=== PATIENT | female | born 1940 | race African-American/Black ===

== ENCOUNTER 2016-11-25 18:47 | Observation (INO) ==
[2016-11-25 20:09] LABS: Basophils # 0.1 10*3/uL (0.0-0.2); Basophils % 1.7 % (0.0-0.8); Eosinophils # 0.3 10*3/uL (0.0-0.87); Eosinophils % 5.6 % (0.00-10.9); Hematocrit 43.2 VOL% (35.7-47.0); Hemoglobin 14.3 GM/DL (12.0-16.0); Immature Granulocytes % 0.2 %; Immature Granulocytes Absolute 0.01 #; Lymphocytes # 1.8 10*3/uL (1.4-4.0); Lymphocytes % 37.6 % (21.3-54.2); Mean Corpuscular HGB Conc 33.1 GM/DL (32-36); Mean Corpuscular Hemoglobin 30 PG (27-34); Mean Corpuscular Volume 91.7 FL (87-102); Monocytes # 0.8 10*3/uL (0.11-0.8); Monocytes % 16.6 % (1.7-12.7); Neutrophils # 1.8 10*3/uL (1.4-7.4); Neutrophils % 38.3 % (38.7-73.9); Platelet Count 144 T/CUMM (130-400); Red Blood Count 4.71 MC/CUMM (3.8-5.5); Red Cell Distribution Width 13.7 % (9.3-17.3); White Blood Count 4.8 T/CUMM (4-12)
--- NOTE | 2016-11-25 20:13 | XRay Report ---
Portable chest Exam date: 11/25/2016 7:51 PM Indication: Shortness of breath, cough Comparison: May 19, 2011 Findings: Cardiomediastinal contours are normal. Lungs are clear bilaterally. No acute osseous abnormalities. Visualized upper abdomen demonstrates no acute pathology. Impression: Normal chest PROCEDURE INTERPRETED AT [facility] DEPARTMENT OF RADIOLOGY Final Report Signed by: Raine Arora MD
[2016-11-25 20:20] LABS: Alanine Aminotransferase 23 U/L (13-56); Albumin 3.8 G/DL (3.4-5.0); Alkaline Phosphatase 74 U/L (45-117); Aspartate Amino Transferase 22 U/L (0-37); Bilirubin,Total < 0.39 MG/DL (0.2-1.0); Blood Urea Nitrogen 15 MG/DL (7-18); Calcium 9.3 MG/DL (8.5-10.1); Glucose 108 MG/DL (74-106); Osmolality,Calculated 276.7 MOS/KG (273-304); Potassium 3.8 MMOL/L (3.5-5.1); Sodium 138 MMOL/L (136-145); Total Protein 8.2 G/DL (6.4-8.3)
--- NOTE | 2016-11-25 21:25 | Emergency Department Note ---
Arrival - Arrival Chief Complaint: Chest Pain Stated Complaint: heat rate low and blood pressure been low chest pa ED Nursing Triage Note: chest pain and low heart rate - sent to ER per home health nurse Mode of Arrival: Wheelchair Time Seen by Provider: 11/25/16 19:19 - History of Present Illness HPI Narrative: This is a 76-year-old female of descent with a history of previous cerebral vascular accident, hyperlipidemia, hypertension, asthma, type 2 diabetes, who had a previous myocardial infarction with stent placement 6 years ago and who presents with 3 weeks of exertional anginal pain radiating to her left arm associated with shortness of breath. Partial in 2 weeks ago her family called an ambulance with the patient did not go to the hospital. She followed up with her family physician who increased 1 of her medications which we believe is a beta-jean paul. Tonight the patient was examined by the home health nurse that noticed that her heart rate was 46 and her the story about her exertional angina recommended that she come to the emergency department. The troponin is 0.02 the electrocardiogram does not show acute ischemic changes. Date of Last Menstrual Period: marika Allergies/Adverse Reactions: Allergies Allergy/AdvReac Type Severity Reaction Status Date / Time No Known Allergies Allergy Unverified 11/25/16 18:54 Home Medications: Home Medications Medication Instructions Recorded Confirmed Type Amlodipine Besylate/Benazepril 1 each PO QAM 11/25/16 11/25/16 History [Amlodipine-Benazepril 10-40 mg] Aspirin EC Tab 81 mg PO QAM 11/25/16 11/25/16 History Escitalopram [Lexapro] 5 - 10 mg PO QAM 11/25/16 11/25/16 History Losartan [Cozaar] 100 mg PO QAM 11/25/16 11/25/16 History Metoprolol Succinate 150 mg PO QAM 11/25/16 11/25/16 History Omeprazole 20 mg PO QAM 11/25/16 11/25/16 History Zolpidem Tartrate 10 mg PO BEDTIME PRN 11/25/16 11/25/16 History hydroCHLOROthiazide 12.5 mg PO QAM 11/25/16 11/25/16 History [Hydrochlorothiazide] tiZANidine [Zanaflex] 2 - 4 mg PO BEDTIME PRN 11/25/16 11/25/16 History Review of System - Review of System Constitutional: Absent: fever, night sweats Eyes: Absent: redness, other Head/Ears/Nose/Throat: Absent: epistaxis, nasal drainage Respiratory: Absent: cough, respiratory distress, wheezing Cardiovascular: Present: chest pain, dyspnea on exertion. Absent: orthopnea, syncope Gastrointestinal: Absent: diarrhea, constipation, hematemesis, melena Genitourinary female: Absent: dysuria, frequency Musculoskeletal: Absent: lower back pain, leg pain Skin: Absent: change in hair/nails, pruritus Neurological: Absent: numbness, paresthesias Psychiatric: Absent: anxiety, depression Endocrine: Absent: polydipsia, polyuria Hematological/Lymphatic: Absent: easy bruising, lymphadenopathy Allergic/Immunologic: Absent: urticaria, itchy eyes Medical,Surgical,& Family Hx - Medical History Cardio: History of: Hypertension Psychological: History of: Depression Neurology: History of: Cerebrovascular Accident Endocrine: History of: Diabetes Mellitus (NIDDM) (diet control), Dyslipidemia Respiratory: History of: Asthma Gastrointestinal: History of: GERD - Social History Smoking Status: Never smoker Frequency of Alcohol Use: None Type of Drug Use: None Exam Vital Signs: Vital Signs Temperature 97.7 F 11/25/16 18:54 Pulse Rate 76 11/25/16 18:54 Respiratory Rate 18 11/25/16 19:51 Blood Pressure 178/90 11/25/16 18:54 O2 Sat by Pulse Oximetry 94 L 11/25/16 18:54 - General General appearance: alert - Head Head exam: Present: atraumatic, normocephalic - Eye Eye exam: Present: PERRL, EOMI - ENT ENT exam: Present: normal exam, normal oropharynx - Neck Neck exam: Present: normal inspection, full ROM - Chest Chest inspection: Present: normal inspection - Respiratory Respiratory exam: Present: normal lung sounds bilaterally - Cardiovascular Cardiovascular exam: Present: regular rate, normal rhythm - Abdominal Exam Abdominal exam: Present: soft, normal bowel sounds - Extremities Exam Extremities exam: Present: normal inspection, full ROM - Back Exam Back exam: Present: normal inspection, full ROM - Neurological Exam Neurological exam: Present: alert, oriented X3, CN II-XII intact - Psychiatric Psychiatric exam: Present: normal affect, normal mood, depressed - Skin Skin exam: Present: warm, dry Course Course Narrative: Because the patient has exertional angina and a slightly elevated troponin it seems reasonable patient to be admitted to the hospital for further evaluation and treatment. The patient's case was discussed with the hospitalist who agreed to admit the patient. Results - Labs CBC & BMP: 11/25/16 19:17 11/25/16 19:17 Disposition Clinical Impression: Angina pectoris Disposition: Still a Patient
[2016-11-25 21:57] LABS: Atypical Lymphocytes Few; Eosinophils 5 % (0-10); Lymphocytes 46 % (20-55); Platelet Estimate Normal; Segmented Neutrophils 40 % (50-85); Total Cells Counted 100
[2016-11-25] MEDS ORDERED: ONDANSETRON 4 MG/2 ML VIAL IV PRN (23:15)
[2016-11-25] MEDS ORDERED: ZALEPLON 5 MG CAPSULE PO PRN (23:18)
--- NOTE | 2016-11-25 23:23 | Hospitalist History & Physical ---
Assessment and Plan (1) Chest pain Status: Acute Current Visit: Yes (2) Bradycardia Status: Acute Current Visit: Yes (3) Hypertension Status: Acute Current Visit: Yes (4) Angina pectoris Status: Acute Assessment and plan: Our plan for this patient will be admitting her to our service. Patient will need to be placed on telemetry. I am going to hold her beta-jean paul at this time. Will consult cardiology for their evaluation. Patient's symptoms are consistent with exertional angina. Will give her Nitropaste aspirin and as needed morphine. Continue other home meds as appropriate. Current Visit: Yes History of Present Illness Chief complaint: Chest pain and decreased heart rate History of present illness: Ms. Alejandre is a 76 year old female with past medical history significant for coronary artery disease hypertension arthritis asthma and stroke who was in her normal state of health the past 3 weeks. Patient's been having a chest pain. She describes his pressure. Radiates to her left arm. She feels diaphoretic and has some exertional components with it. She had home health nurse come check her vital signs today and she was found to be bradycardic. She recommended that the patient go to the emergency room or clinic. When I asked the patient about why she did not seek medical attention before today she said that she thought it would get better. She says in fact it does remind her of her previous heart attack. I was consulted for admission. She sees Dr. Baeza the facsimile operator in clinic. Home Medications Medication Instructions Recorded Confirmed Type Amlodipine Besylate/Benazepril 1 each PO QAM 11/25/16 11/25/16 History [Amlodipine-Benazepril 10-40 mg] Aspirin EC Tab 81 mg PO QAM 11/25/16 11/25/16 History Escitalopram [Lexapro] 5 - 10 mg PO QAM 11/25/16 11/25/16 History Losartan [Cozaar] 100 mg PO QAM 11/25/16 11/25/16 History Metoprolol Succinate 150 mg PO QAM 11/25/16 11/25/16 History Omeprazole 20 mg PO QAM 11/25/16 11/25/16 History Zolpidem Tartrate 10 mg PO BEDTIME PRN 11/25/16 11/25/16 History hydroCHLOROthiazide 12.5 mg PO QAM 11/25/16 11/25/16 History [Hydrochlorothiazide] tiZANidine [Zanaflex] 2 - 4 mg PO BEDTIME PRN 11/25/16 11/25/16 History Allergies Allergy/AdvReac Type Severity Reaction Status Date / Time No Known Allergies Allergy Unverified 11/25/16 18:54 Medical,Surgical,& Family Hx - Medical History Cardio: History of: CAD, Hypertension Psychological: History of: Depression Neurology: History of: Cerebrovascular Accident Endocrine: History of: Diabetes Mellitus (NIDDM) (diet control), Dyslipidemia Respiratory: History of: Asthma Gastrointestinal: History of: GERD - Surgical History HEENT Surgeries: Surgical HX of: Thyroid Surgery - Family History Family History: Reports;: Family Heart Disease, Family Hypertension, Family Stroke - Social History Smoking Status: Never smoker Frequency of Alcohol Use: None Type of Drug Use: None 12 point system: reviewed and no additional remarkable complaints except as stated Exam - Constitutional Vitals: Period Temp Pulse Resp BP Sys/Dee Pulse Ox Last 24 Hr 97.7 F 76 18-20 178/90 94 General appearance: over weight - Head Head exam: Present: normal inspection - Eye Eye exam: Present: EOMI Pupils: Present: AMELIE - ENT ENT exam: Present: normal exam - Neck Neck exam: Present: normal inspection - Respiratory Respiratory exam: Present: clear to auscultation bilaterally - Cardiovascular Cardiovascular exam: Present: bradycardia - GI/Abdominal GI/Abdominal exam: Present: normal bowel sounds - Extremities Exam Extremities exam: Present: normal inspection - Back Exam Back exam: Present: normal inspection - Neurological Exam Neurological exam: Present: alert, oriented X3 - Psychiatric Psychiatric exam: Present: normal affect - Skin Skin exam: Present: normal color Results - Labs CBC & BMP: 11/25/16 19:17 11/25/16 19:17
[2016-11-25] MEDS ORDERED: ACETAMINOPHEN 500 MG TABLET PO STA (23:30)
[2016-11-25] MEDS ORDERED: ACETAMINOPHEN 500 MG TABLET ONE (23:32)
[2016-11-26] MEDS: NITROGLYCERIN 2% OINT 1 INCH/GM PACK TOP SCH ×2 (02:00→07:10)
--- NOTE | 2016-11-26 04:13 | Order Completion Report ---
See report scanned to EMR
[2016-11-26 06:21] LABS: Free T4 (Free Thyroxine) 0.39 NG/DL (0.76-1.46); Thyroid Stimulating Hormone 36.7 uIU/ml (0.358-3.74)
--- NOTE | 2016-11-26 08:28 | Cardiology Consult Note ---
<Noemy Ponce - Last Filed: 11/26/16 09:35> Assessment and Plan - Time spent with patient Time spent with patient: Greater than 30 minutes (1) Chest pain Status: Acute Assessment and plan: SEE PLAN OF CARE LISTED BELOW. Current Visit: Yes (2) Dyslipidemia Status: Chronic Assessment and plan: SEE PLAN OF CARE LISTED BELOW. Current Visit: Yes (3) Diabetes Status: Chronic Assessment and plan: SEE PLAN OF CARE LISTED BELOW. Current Visit: Yes (4) Hypothyroidism Status: Chronic Assessment and plan: SEE PLAN OF CARE LISTED BELOW. Current Visit: Yes (5) Obstructive sleep apnea Status: Chronic Assessment and plan: SEE PLAN OF CARE LISTED BELOW. Current Visit: Yes (6) History of CVA (cerebrovascular accident) Status: Chronic Assessment and plan: SEE PLAN OF CARE LISTED BELOW. Current Visit: No (7) Obesity Status: Chronic Assessment and plan: SEE PLAN OF CARE LISTED BELOW. Current Visit: Yes Qualifiers: Body mass index: BMI 38.0-38.9 (8) Coronary artery disease Status: Chronic Assessment and plan: SEE PLAN OF CARE LISTED BELOW. Current Visit: Yes (9) Bradycardia Status: Acute Assessment and plan: SEE PLAN OF CARE LISTED BELOW. Current Visit: Yes (10) Hypertension Status: Chronic Assessment and plan: SEE PLAN OF CARE LISTED BELOW. Current Visit: Yes History of Present Illness - Data of Consult Patient: known to practice within the last 3 years Consult date: 11/26/16 Requesting Physician: Kaushal Lam - Consult Narrative Reason for consult: chest pain History of present illness: [facility]: Dr. Baeza PCP: Dr. Polanco Ms. Neal is a 76 year old female with known history of coronary artery disease, routinely followed by Dr. Baeza. Cardiac risk factors include: Known CAD, diabetes, hypertension, dyslipidemia, obesity, sedentary lifestyle and former smoker (quit in 2011). Past medical history includes: Rheumatoid arthritis, asthma, stroke in 2004, hypothyroidism, obstructive sleep apnea and depression. Patient underwent heart catheterization March 2011 and received stent to RCA. She has been on dual antiplatelet therapy until approximately 1 year ago. Plavix was stopped due to hematuria. She reports that this has resolved since stopping her Plavix. Patient has not had stress test performed after heart catheterization 2011. She does tell me that she had one prior to having her heart cath and she did not tolerate this well. She reports that she did not like with the Lexiscan made her feel. She does not want to have this done again if not necessary. No recent echocardiogram noted in EMR. Patient was last seen in the cardiology clinic by Dr. Baeza July 2016. Patient presented to [facility] November 25, 2016 with complaints of chest pain for the last 3 weeks. She first experienced chest pain 3 weeks ago while walking back from the bathroom to her chair. Describes it as a chest tightness located midsternally. Associated with shortness of breath and nausea. Denies associated diaphoresis. Lasted approximately 5-10 minutes. Relieved with rest. She has been experiencing intermittent chest pain since that day. She tells me that sometimes it comes on with rest and sometimes it comes on while she is walking. She now is experiencing radiation down her left shoulder. She reports that most of the time it is worse and when she walks. Eases up when she lays down or sits down. She tells me that her nitroglycerin is out of date and she has been unable to take this at home. She also confirms worsening dyspnea on exertion. She can only walk very short distance without having to stop and rest. She has noticed that this has greatly worsened over the past 3 weeks. She tells me that she has been off Plavix for 1 year. This was discontinued due to to hematuria. She has not had any recurrent hematuria since this medicine was discontinued. She confirms that her symptomology is very similar to when she received stent to her RCA. She is very concerned that it is cardiac related. Patient has been admitted under hospital medicine's service. She has house on the telemetry unit. Cardiology has been consulted to further evaluate her chest pain. Of note, patient does have history of obstructive sleep apnea. She does have a CPAP machine at home but has been able to wear this for at least the last month as it is leaking. I will consult sleep medicine to assist with this. Patient was seen and examined on the telemetry unit. She is currently without complaints of chest pain, heaviness or tightness. Denies shortness of breath. Cardiac biomarkers have been negative 4. EKG is without ischemic changes. Patient's chest pain sounds typical for cardiac as she says it is very similar to before when she required PCI to RCA. I have discussed this patient with Dr. Baeza. We will keep her n.p.o. and schedule heart catheterization today. Risks and benefits of this procedure has been reviewed with the patient. She is agreeable to proceed. Patient is unable to tolerate beta-blockade at this time as she is currently bradycardic. We will continue aspirin, nitrates and ARB. I have added lipid lowering agent. Further plan and addendum to follow per Dr. Baeza. IMPRESSION AND PLAN 1. CHEST PAIN - Chest pain sounds typical. We will keep patient n.p.o. and scheduled for heart catheterization later today. Risks and benefits of this procedure has been reviewed with the patient. She is agreeable to proceed. Patient is unable to tolerate beta-blockade at this time as she is currently bradycardic. We will continue aspirin, nitrates and ARB. I have added lipid lowering agent. Further plan and addendum to follow per Dr. Baeza. 2. KNOWN CAD - She did receive PCI to RCA March 2011. Continue aspirin, nitrates and ARB. I lipid-lowering agent. Unable to tolerate beta-blockade as she is currently bradycardic. 3. HYPOTHYROIDISM - I have reviewed patient's TSH as well as free T4. She does have history of hypothyroidism. I suspect that this is contributing to patient's bradycardia. Patient will need adjustment in her Synthroid. I will defer management of this to hospital medicine. 4. BRADYCARDIA - Holding beta blockade. Suspect that this is related to patient's significant hypothyroidism. I will defer treatment of this to hospital medicine. 5. HYPERTENSION - Well controlled. Will monitor blood pressure and adjust accordingly. 6. DIABETES - Management per attending. Blood sugars well controlled. 7. DYSLIPIDEMIA - I have added lipid lowering agent. Lipid panel in the morning. 8. OBESITY - Weight loss encouraged via regular exercise and dietary restriction. 9. HISTORY OF CVA - Continue aspirin. 10. OBSTRUCTIVE SLEEP APNEA - Patient reports that she has not been using her CPAP machine as it is leaking. I will consult sleep medicine for assistance with this. CC: Jacque Messina MD - Home Medications and Allergies Home Medications: Home Medications Medication Instructions Recorded Confirmed Type Amlodipine Besylate/Benazepril 1 each PO QAM 11/25/16 11/25/16 History [Amlodipine-Benazepril 10-40 mg] Aspirin EC Tab 81 mg PO QAM 11/25/16 11/25/16 History Escitalopram [Lexapro] 5 - 10 mg PO QAM 11/25/16 11/25/16 History Losartan [Cozaar] 100 mg PO QAM 11/25/16 11/25/16 History Metoprolol Succinate 150 mg PO QAM 11/25/16 11/25/16 History Omeprazole 20 mg PO QAM 11/25/16 11/25/16 History Zolpidem Tartrate 10 mg PO BEDTIME PRN 11/25/16 11/25/16 History hydroCHLOROthiazide 12.5 mg PO QAM 11/25/16 11/25/16 History [Hydrochlorothiazide] tiZANidine [Zanaflex] 2 - 4 mg PO BEDTIME PRN 11/25/16 11/25/16 History Allergies/Adverse Reactions: Allergies Allergy/AdvReac Type Severity Reaction Status Date / Time No Known Allergies Allergy Unverified 11/25/16 18:54 - Constitutional Constitutional: Present: as per HPI, fatigue, weakness. Absent: chills, fever(s ), frequent falls, lethargy, malaise, weight gain, weight loss - Cardiovascular Cardiovascular: Present: as per HPI, chest pain at rest, chest pain with activity, dyspnea, dyspnea on exertion, radiating jaw, neck or arm pain. Absent : claudication, diaphoresis, edema, lightheadedness, orthopnea, palpitations, PND - Respiratory Respiratory: Present: as per HPI, dyspnea, dyspnea on exertion. Absent: cough, hemoptysis, wheezing, snoring, pain on inspiration, change in phlegm color - Gastrointestinal Gastrointestinal: Present: as per HPI, nausea. Absent: abdominal pain, heartburn, hematemesis, hematochezia, melena, vomiting - Genitourinary Genitourinary: Absent: hematuria - Neurological Neurological: Present: as per HPI. Absent: abnormal gait, abnormal speech, behavioral changes, dizziness, frequent falls, syncope - Hematologic/Lymphatic Hematologic/Lymphatic: Present: as per HPI. Absent: easy bleeding, easy bruising Medical,Surgical,& Family Hx - Medical History Cardio: History of: CAD, Hypertension Psychological: History of: Depression Neurology: History of: Cerebrovascular Accident Endocrine: History of: Diabetes Mellitus (NIDDM) (diet control), Dyslipidemia Respiratory: History of: Asthma Gastrointestinal: History of: GERD - Surgical History Cardiac Surgeries: Sugical HX of: Cardiac Catheterization HEENT Surgeries: Surgical HX of: Thyroid Surgery - Family History Family History: Reports;: Family Hypertension, Family Stroke - Social History Smoking Status: Former smoker Frequency of Alcohol Use: None Type of Drug Use: None Functional capacity: independent ambulation Physical Examination Vital Signs Temp Pulse Resp BP Pulse Ox 97.7 F 76 20 178/90 94 L 11/25/16 18:54 11/25/16 18:54 11/25/16 18:54 11/25/16 18:54 11/25/16 18:54 Exam: General: Appears well with no apparent distress. Pleasant and cooperative. Appears comfortable. HEENT: PERRL, normocephalic, atraumatic. Mucous membranes moist. No jaundice noted. Conjunctiva moist and clear, sclerae anicteric Neck: No JVD/HJR, no thyromegaly or lymphadenopathy noted. No carotid bruit appreciated Cardiac: Regular rate and rhythm. No murmur rub or gallop. Lungs: Clear to auscultation without accessory muscle use to assist the respiratory pattern. Not requiring oxygen. Abdomen: Soft, bowel sounds normoactive. Nontender and nondistended. No abdominal bruit or thrill noted. No masses noted. Extremities: No clubbing, cyanosis noted. Trace bilateral lower extremity edema upper extremity pulses 2+. Lower extremity pulses 2+. Capillary refill less than 3 seconds. Skin: No unusual lesions or rashes. No skin breakdown appreciated. Neuro: Awake, alert and oriented 3. Moves all extremities well without hemiparesis or paralysis. No essential tremor is appreciated. Result/EKG - Labs CBC & BMP: 11/25/16 19:17 11/25/16 19:17 Lab Results: I have reviewed the past 24 hour labs Labs: Laboratory Results - last 24 hr 11/25/16 11/25/16 11/25/16 19:17 19:17 19:17 WBC 4.8 RBC 4.71 Hgb 14.3 Hct 43.2 MCV 91.7 MCH 30 MCHC 33.1 RDW 13.7 Plt Count 144 MPV 14.0 H Neut % (Auto) 38.3 L Lymph % (Auto) 37.6 Steele % (Auto) 16.6 H Eos % (Auto) 5.6 Baso % (Auto) 1.7 H Neut # (Auto) 1.8 Lymph # (Auto) 1.8 Steele # (Auto) 0.8 Eos # (Auto) 0.3 Baso # (Auto) 0.1 Total Counted 100 Immature Gran % 0.2 Nucleated RBC % 0.0 Immature Gran # 0.01 Segmented Neutrophils 40 L Lymphocytes 46 Monocytes 9 Eosinophils 5 Nucleated RBCs # 0.00 Atypical Lymphocytes Few Platelet Estimate Normal Immature Plt Fraction 0.0 Sodium 138 Potassium 3.8 Chloride 102 Carbon Dioxide 29 Anion Gap 10.8 BUN 15 Creatinine 1.30 H GFR Calculation 65 BUN/Creatinine Ratio 11.00 Glucose 108 H Calculated Osmolality 276.7 Calcium 9.3 Total Bilirubin < 0.39 AST 22 ALT 23 Alkaline Phosphatase 74 Troponin I 0.021 B-Natriuretic Peptide Total Protein 8.2 Albumin 3.8 Globulin 4.4 H Albumin/Globulin Ratio 0.8 L Free T4 TSH 3rd Generation 11/25/16 11/26/16 11/26/16 19:17 00:43 02:22 WBC RBC Hgb Hct MCV MCH MCHC RDW Plt Count MPV Neut % (Auto) Lymph % (Auto) Steele % (Auto) Eos % (Auto) Baso % (Auto) Neut # (Auto) Lymph # (Auto) Steele # (Auto) Eos # (Auto) Baso # (Auto) Total Counted Immature Gran % Nucleated RBC % Immature Gran # Segmented Neutrophils Lymphocytes Monocytes Eosinophils Nucleated RBCs # Atypical Lymphocytes Platelet Estimate Immature Plt Fraction Sodium Potassium Chloride Carbon Dioxide Anion Gap BUN Creatinine GFR Calculation BUN/Creatinine Ratio Glucose Calculated Osmolality Calcium Total Bilirubin AST ALT Alkaline Phosphatase Troponin I 0.026 0.027 B-Natriuretic Peptide 33 Total Protein Albumin Globulin Albumin/Globulin Ratio Free T4 TSH 3rd Generation 11/26/16 11/26/16 11/26/16 05:26 05:26 05:26 WBC RBC Hgb Hct MCV MCH MCHC RDW Plt Count MPV Neut % (Auto) Lymph % (Auto) Steele % (Auto) Eos % (Auto) Baso % (Auto) Neut # (Auto) Lymph # (Auto) Steele # (Auto) Eos # (Auto) Baso # (Auto) Total Counted Immature Gran % Nucleated RBC % Immature Gran # Segmented Neutrophils Lymphocytes Monocytes Eosinophils Nucleated RBCs # Atypical Lymphocytes Platelet Estimate Immature Plt Fraction Sodium Potassium Chloride Carbon Dioxide Anion Gap BUN Creatinine GFR Calculation BUN/Creatinine Ratio Glucose Calculated Osmolality Calcium Total Bilirubin AST ALT Alkaline Phosphatase Troponin I 0.037 B-Natriuretic Peptide Total Protein Albumin Globulin Albumin/Globulin Ratio Free T4 0.41 L 0.39 L TSH 3rd Generation 36.700 H - EKG EKG results: interpreted by me, sinus rhythm EKG shows: bradycardia Specialty Discharge - Follow Up or Referrals <Kaushal Baeza - Last Filed: 11/26/16 10:47> History of Present Illness - Consult Narrative History of present illness: Patient personally reviewed and examined by me and chart reviewed. The patient is known to me for the past. I discussed this case with Noemy Ponce NP. I agree with the assessment and evaluation and plan. In summation and addition Ms. Neal is a 76 year old female who in 2012 had a stent placed in the RCA. She had some mild left main disease. She recently been having anginal symptomatology he was admitted with chest pain. Her troponin peak is 0.037. Her ECG is without acute changes. With her known coronary disease I think she should have cardiac catheterization and possible percutaneous intervention versus other treatment. Her creatinine is minimally elevated at 1.3 with a GFR of 65. Electrolytes are stable. I think we can pursue further evaluation and therapy with catheterization as noted. I discussed heart catheterization with intervention with the patient reviewing the indications benefits and risks with her. I discussed cardiac catheterization and percutaneous coronary intervention with the patient. I reviewed with her the indications for the procedure and the basis of how the procedure would be carried out. I also reviewed with her the risk of the procedure which include but not necessarily limited to access site bleeding, bruising, pain, swelling or vascular injury that may require emergency vascular surgery, blood transfusion, or thrombin injection. Also discussed the possibility of stroke, myocardial infarction, arrhythmia which may require electrocardioversion, and the possibility of dye reaction that would require medical therapy. Also discussed the possibility of coronary artery injury, ruptured, closure or perforation that may require emergency bypass surgery. We also discussed the possibility of from a major complication. She voices understanding and agrees to proceed. CC: Jacque Messina MD Physical Examination Vital Signs Temp Pulse Resp BP Pulse Ox 97.7 F 76 20 178/90 94 L 11/25/16 18:54 11/25/16 18:54 11/25/16 18:54 11/25/16 18:54 11/25/16 18:54 Result/EKG - Labs CBC & BMP: 11/25/16 19:17 11/25/16 19:17 Labs: Laboratory Results - last 24 hr 11/25/16 11/25/16 11/25/16 19:17 19:17 19:17 WBC 4.8 RBC 4.71 Hgb 14.3 Hct 43.2 MCV 91.7 MCH 30 MCHC 33.1 RDW 13.7 Plt Count 144 MPV 14.0 H Neut % (Auto) 38.3 L Lymph % (Auto) 37.6 Steele % (Auto) 16.6 H Eos % (Auto) 5.6 Baso % (Auto) 1.7 H Neut # (Auto) 1.8 Lymph # (Auto) 1.8 Steele # (Auto) 0.8 Eos # (Auto) 0.3 Baso # (Auto) 0.1 Total Counted 100 Immature Gran % 0.2 Nucleated RBC % 0.0 Immature Gran # 0.01 Segmented Neutrophils 40 L Lymphocytes 46 Monocytes 9 Eosinophils 5 Nucleated RBCs # 0.00 Atypical Lymphocytes Few Platelet Estimate Normal Immature Plt Fraction 0.0 Sodium 138 Potassium 3.8 Chloride 102 Carbon Dioxide 29 Anion Gap 10.8 BUN 15 Creatinine 1.30 H GFR Calculation 65 BUN/Creatinine Ratio 11.00 Glucose 108 H Calculated Osmolality 276.7 Calcium 9.3 Total Bilirubin < 0.39 AST 22 ALT 23 Alkaline Phosphatase 74 Troponin I 0.021 B-Natriuretic Peptide Total Protein 8.2 Albumin 3.8 Globulin 4.4 H Albumin/Globulin Ratio 0.8 L Free T4 TSH 3rd Generation 11/25/16 11/26/16 11/26/16 19:17 00:43 02:22 WBC RBC Hgb Hct MCV MCH MCHC RDW Plt Count MPV Neut % (Auto) Lymph % (Auto) Steele % (Auto) Eos % (Auto) Baso % (Auto) Neut # (Auto) Lymph # (Auto) Steele # (Auto) Eos # (Auto) Baso # (Auto) Total Counted Immature Gran % Nucleated RBC % Immature Gran # Segmented Neutrophils Lymphocytes Monocytes Eosinophils Nucleated RBCs # Atypical Lymphocytes Platelet Estimate Immature Plt Fraction Sodium Potassium Chloride Carbon Dioxide Anion Gap BUN Creatinine GFR Calculation BUN/Creatinine Ratio Glucose Calculated Osmolality Calcium Total Bilirubin AST ALT Alkaline Phosphatase Troponin I 0.026 0.027 B-Natriuretic Peptide 33 Total Protein Albumin Globulin Albumin/Globulin Ratio Free T4 TSH 3rd Generation 11/26/16 11/26/16 11/26/16 05:26 05:26 05:26 WBC RBC Hgb Hct MCV MCH MCHC RDW Plt Count MPV Neut % (Auto) Lymph % (Auto) Steele % (Auto) Eos % (Auto) Baso % (Auto) Neut # (Auto) Lymph # (Auto) Steele # (Auto) Eos # (Auto) Baso # (Auto) Total Counted Immature Gran % Nucleated RBC % Immature Gran # Segmented Neutrophils Lymphocytes Monocytes Eosinophils Nucleated RBCs # Atypical Lymphocytes Platelet Estimate Immature Plt Fraction Sodium Potassium Chloride Carbon Dioxide Anion Gap BUN Creatinine GFR Calculation BUN/Creatinine Ratio Glucose Calculated Osmolality Calcium Total Bilirubin AST ALT Alkaline Phosphatase Troponin I 0.037 B-Natriuretic Peptide Total Protein Albumin Globulin Albumin/Globulin Ratio Free T4 0.41 L 0.39 L TSH 3rd Generation 36.700 H
[2016-11-26] MEDS ORDERED: LOSARTAN 50 MG TABLET PO SCH (09:00)
[2016-11-26] MEDS ORDERED: MAGNESIUM SULF RIDER 2 GM in PREMIX 1 EACH IV PRN (10:41)
[2016-11-26] MEDS ORDERED: diphenhydrAMINE CAP 25 MG CAPSULE PO ONE (10:41)
[2016-11-26] MEDS ORDERED: DIAZEPAM 5 MG TABLET PO ONE (10:41)
[2016-11-26] MEDS ORDERED: POTASSIUM CHLORIDE RIDER 10 MEQ in PREMIX 1 EACH IV PRN (10:41)
[2016-11-26] MEDS: ESCITALOPRAM 10 MG TABLET PO SCH (10:45)
[2016-11-26] MEDS: ASPIRIN EC 325 MG TABLET PO SCH (10:45)
[2016-11-26] MEDS: PANTOPRAZOLE 40 MG TABLET PO SCH (10:45)
[2016-11-26] MEDS: hydroCHLOROthiazide 12.5 MG CAPSULE PO SCH (10:45)
[2016-11-26] MEDS: ENOXAPARIN 40 MG/0.4 ML SYRINGE SUBCUT SCH (10:46)
[2016-11-26] MEDS ORDERED: diphenhydrAMINE CAP 50 MG CAPSULE ONE (10:53)
[2016-11-26] MEDS ORDERED: SODIUM CHLORIDE 0.9% 1,000 ML IV SCH ×2 (11:00→13:00)
[2016-11-26] MEDS ORDERED: fentaNYL 100 MCG/2 ML VIAL ONE (11:25)
[2016-11-26] MEDS ORDERED: MIDAZOLAM 2 MG/2 ML VIAL ONE (11:25)
[2016-11-26] MEDS ORDERED: LIDOCAINE 1% 20 ML VIAL ONE (11:27)
--- NOTE | 2016-11-26 11:42 | History and Physical Update ---
Sedation H&P Update - History and Physical H&P was reviewed, the patient examined and there: are no changes in the patients condition since last H&P was completed. - Dictation Physical: refer to H&P completed by admitting physician - Physical Exam Mental Status: alert and oriented Heart: regular rate and rhythm Lung: clear to auscultation Abdomen: within normal limits Vitals: within normal limits History and Physical Changes: None - Sedation Plan for Sedation: moderate Patient Consent: Procedure disscussed with patient and patinet has consented., Risks and benefits were discussed with patient,including infection,, bleeding, injury to surrounding structures, seizure, temporary nerve, Patient understands and accepts potential risks/benefits and agrees to, proceed. ASA Class: III Airway Assessment: Class III: Soft palate, base of uvula visible
[2016-11-26] MEDS ORDERED: ADENOSINE 6 MG/2 ML VIAL ONE ×3 (12:16→12:19)
--- NOTE | 2016-11-26 12:35 | Operative Note ---
Date of procedure: 11/26/16 Procedure Preformed: Left heart catheterization with FFR/WaveWire measurement of the RCA. This was not significant lesion. Surgeon / Physician: Kaushal Baeza Powder Worker Tnt: Fatimah Lazcano Post-op diagnosis: same Findings: Patient with moderate coronary artery disease but no high-grade stenosis. Patent RCA stents. Specimens: none sent Estimated blood loss: minimal Condition: stable Anesthesia: local, conscious sedation Disposition: floor
--- NOTE | 2016-11-26 15:15 | Hospitalist Progress Note ---
Assessment and Plan (1) Chest pain Status: Acute Assessment and plan: No significant coronary artery disease requiring stenting on today's heart cath. Current Visit: Yes (2) Bradycardia Status: Acute Assessment and plan: Hold beta blockers or calcium channel blockers. Start Synthroid for severe hypothyroidism. Current Visit: Yes (3) Hypertension Status: Chronic Assessment and plan: Continue home medications Current Visit: Yes Qualifiers: Hypertension type: essential hypertension Qualified Code(s): I10 - Essential (primary) hypertension (4) Dyslipidemia Status: Chronic Assessment and plan: Continue statin Current Visit: Yes (5) Diabetes Status: Chronic Current Visit: Yes Qualifiers: Diabetes mellitus type: type 2 (6) Hypothyroidism Status: Acute Assessment and plan: Start Synthroid Current Visit: Yes (7) Obstructive sleep apnea Status: Chronic Current Visit: Yes (8) History of CVA (cerebrovascular accident) Status: Chronic Current Visit: No (9) Obesity Status: Chronic Current Visit: Yes Qualifiers: Body mass index: BMI 38.0-38.9 (10) Coronary artery disease Status: Chronic Current Visit: Yes Hospitalist: Subjective Interval history: Patient seen and examined. No acute events overnight. Case discussed with nursing staff. Labs reviewed. 76-year-old female admitted to the hospital with chest pain and bradycardia. She has undergone left heart cath today by cardiology with no significant stenosis and patent stents. She was noted to have a very high TSH and I have started her on Synthroid. This may be contributing to her underlying bradycardia. Further recommendations will depend on her response to therapy. Exam - Constitutional Vitals: Period Temp Pulse Resp BP Sys/Dee Pulse Ox Last 24 Hr 96.9 F-97.7 F 41-76 16-20 135-178/57-90 92-100 Exam: Constitutional System: No distress. No tremulousness. Head: Normocephalic, atraumatic. Ears, Nose and Throat System: No pain or tenderness. No epistaxis or discharge Eyes System: Pupils equal, round, and reactive. Extraocular muscles intact. Neck: Supple, without adenopathy, No jugular venous distention. No thyromegaly, neck mass, or prior surgery apparent. Respiratory System: Chest clear to auscultation. Cardiovascular System: Heart with bradycardic rate and rhythm. No murmur. GI System: Abdomen soft, nontender. Normo active bowel sounds present. Musculoskeletal System: limbs with no pedal edema. Full distal pulses. Normal capillary refill. Neurological System: No discernable sensory deficit. No aphasia Psychiatric System: Conversation is rational Results - Labs CBC & BMP: 11/25/16 19:17 11/25/16 19:17 Lab Results: I have reviewed the past 24 hour labs Specialty Discharge - Follow Up or Referrals
--- NOTE | 2016-11-26 17:12 | Event Note ---
Patient doing well post catheterization. Right groin is stable. I have discussed Findings with the patient and family. She is bradycardic and question this is related to some degree to her thyroid which she appears to have some hypothyroidism. She is now just on levothyroxine will see how this affects her heart rates.
[2016-11-26] MEDS: ATORVASTATIN 40 MG TABLET PO SCH (21:15)
[2016-11-27 05:43] LABS: Basophils # 0.1 10*3/uL (0.0-0.2); Basophils % 1.3 % (0.0-0.8); Eosinophils # 0.2 10*3/uL (0.0-0.87); Hematocrit 40.3 VOL% (35.7-47.0); Hemoglobin 13.1 GM/DL (12.0-16.0); Immature Granulocytes % 0.4 %; Immature Granulocytes Absolute 0.02 #; Lymphocytes # 1.4 10*3/uL (1.4-4.0); Lymphocytes % 28.6 % (21.3-54.2); Mean Corpuscular HGB Conc 32.5 GM/DL (32-36); Mean Corpuscular Hemoglobin 30 PG (27-34); Mean Corpuscular Volume 92.6 FL (87-102); Mean Platelet Volume 12.9 FL (9.6-12.0); Monocytes # 0.8 10*3/uL (0.11-0.8); Monocytes % 17.1 % (1.7-12.7); Neutrophils # 2.3 10*3/uL (1.4-7.4); Neutrophils % 48.6 % (38.7-73.9); Platelet Count 129 T/CUMM (130-400); Red Blood Count 4.35 MC/CUMM (3.8-5.5); Red Cell Distribution Width 13.5 % (9.3-17.3); White Blood Count 4.8 T/CUMM (4-12)
[2016-11-27] MEDS: NITROGLYCERIN 2% OINT 1 INCH/GM PACK TOP SCH (05:56)
[2016-11-27 06:12] LABS: Eosinophils 6 % (0-10); Lymphocytes 21 % (20-55); Platelet Estimate Normal; Segmented Neutrophils 56 % (50-85); Total Cells Counted 100
[2016-11-27 06:14] LABS: Calcium 8.9 MG/DL (8.5-10.1); Magnesium 1.8 MG/DL (1.8-2.4); Osmolality,Calculated 281.3 MOS/KG (273-304)
[2016-11-27] MEDS: LEVOTHYROXINE 25 MCG TABLET PO SCH (06:18)
[2016-11-27 06:43] LABS: Risk Ratio 7.02; VLDL CHOLESTEROL 37.6 MG/DL
--- NOTE | 2016-11-27 08:35 | Order Completion Report ---
See report scanned to EMR
[2016-11-27] MEDS ORDERED: ACETAMINOPHEN 325 MG TABLET PO PRN (09:41)
[2016-11-27] MEDS: hydroCHLOROthiazide 12.5 MG CAPSULE PO SCH (09:43)
[2016-11-27] MEDS: PANTOPRAZOLE 40 MG TABLET PO SCH (09:44)
[2016-11-27] MEDS: ESCITALOPRAM 10 MG TABLET PO SCH (09:44)
[2016-11-27] MEDS: ASPIRIN EC 325 MG TABLET PO SCH (09:44)
[2016-11-27] MEDS: ENOXAPARIN 40 MG/0.4 ML SYRINGE SUBCUT SCH (09:46)
--- NOTE | 2016-11-27 11:22 | Cardiology Progress Note ---
Assessment and Plan (1) Bradycardia Status: Acute Assessment and plan: Patient is bradycardic and may be associated with hypothyroidism. We will monitor this as her thyroid replacement started. Current Visit: Yes (2) Hypertension Status: Chronic Assessment and plan: Vital signs are fairly stable at this time. We will continue to monitor while in the hospital. Current Visit: Yes Qualifiers: Hypertension type: essential hypertension Qualified Code(s): I10 - Essential (primary) hypertension (3) Dyslipidemia Status: Chronic Assessment and plan: On statin drug and will continue this. Her lipids were not controlled upon admission but her Lipitor apparently also been stopped as an outpatient. It has been restarted. Current Visit: Yes (4) Diabetes Status: Chronic Assessment and plan: Hospital service is following this. Current Visit: Yes Qualifiers: Diabetes mellitus type: type 2 (5) Hypothyroidism Status: Acute Assessment and plan: This is truly a chronic issue for some reason her levothyroxine was stopped. Certainly this may be contributing to her bradycardia. She has not had a bradycardic issue except for her beta-jean paul previously. She is not on that now. Current Visit: Yes (6) Obesity Status: Chronic Assessment and plan: Certainly she would benefit from weight loss. Current Visit: Yes Qualifiers: Body mass index: BMI 38.0-38.9 (7) Coronary artery disease Status: Chronic Assessment and plan: Post catheterization is doing well. She has moderate coronary disease it worse and will treat medically. Current Visit: Yes Cardiology - PN: Subj Interval history: Patient doing well post catheterization without any real specific complaints. Her right groin is stable. She still bradycardic. Her levothyroxine is being started. Other than her heart rates her rhythm remains sinus. Car while she has been stable vital signs stable. I have low back on her office chart recently and indeed she had been on chronic levothyroxine at 112 mcg daily. She states her primary care physician about a month or so ago stopped this for no known reason that the patient is aware of. Certainly based on her thyroid numbers now she should be on medication. Exam (Progress Note) - Constitutional Vitals: Period Temp Pulse Resp BP Sys/Dee Pulse Ox Last 24 Hr 97.6 F-98.6 F 40-47 16-20 127-167/58-82 90-100 Exam: General appearance: Alert cooperative overweight/obese female. HEENT: Atraumatic normocephalic. Eye exam with PERRL, EOMI. Neck: Trachea midline supple. No thyromegaly. Lungs: Clear without rales or, wheezes. Cardiac: Regular rate and rhythm little bradycardic but no gross murmur gallop or rub. Chest wall: Nontender. Abdomen: Obese soft nontender. Bowel sounds present. Extremities/muscular: Right groin cath site is stable. Extremities are benign. Neurologic: Cooperative without focal deficits. Psychiatric: Cognitive function grossly intact. Dermatologic: Stable. Result/EKG - Labs CBC & BMP: 11/27/16 05:17 11/27/16 05:17 Lab Results: I have reviewed the past 24 hour labs Labs: Laboratory Results - last 24 hr 11/27/16 11/27/16 11/27/16 05:17 05:17 05:17 WBC 4.8 RBC 4.35 Hgb 13.1 Hct 40.3 MCV 92.6 MCH 30 MCHC 32.5 RDW 13.5 Plt Count 129 L MPV 12.9 H Neut % (Auto) 48.6 Lymph % (Auto) 28.6 [place] % (Auto) 17.1 H Eos % (Auto) 4.0 Baso % (Auto) 1.3 H Neut # (Auto) 2.3 Lymph # (Auto) 1.4 [place] # (Auto) 0.8 Eos # (Auto) 0.2 Baso # (Auto) 0.1 Total Counted 100 Immature Gran % 0.4 Nucleated RBC % 0.0 Immature Gran # 0.02 Segmented Neutrophils 56 Lymphocytes 21 Monocytes 15 Eosinophils 6 Basophils 2.0 H Nucleated RBCs # 0.00 Platelet Estimate Normal Immature Plt Fraction 0.0 Pappenheimer Bodies [employer] Supervisor Sodium 141 Potassium 4.0 Chloride 103 Carbon Dioxide 34 H Anion Gap 8.0 BUN 15 Creatinine 1.30 H GFR Calculation 65 BUN/Creatinine Ratio 11.00 Glucose 100 Calculated Osmolality 281.3 Calcium 8.9 Magnesium 1.8 Triglycerides 188 H Cholesterol 372 H LDL Cholesterol 263.0 VLDL Cholesterol 37.6 HDL Cholesterol 53 Heart Disease Risk Ratio 7.02 - Impressions Impressions: Telemetry with sinus bradycardia. Specialty Discharge - Follow Up or Referrals
--- NOTE | 2016-11-27 12:42 | Hospitalist Progress Note ---
Assessment and Plan (1) Chest pain Status: Acute Assessment and plan: No significant coronary artery disease requiring stenting on today's heart cath. Current Visit: Yes (2) Bradycardia Status: Acute Assessment and plan: Hold beta blockers or calcium channel blockers. Start Synthroid for severe hypothyroidism. Current Visit: Yes (3) Hypertension Status: Chronic Assessment and plan: Continue home medications Current Visit: Yes Qualifiers: Hypertension type: essential hypertension Qualified Code(s): I10 - Essential (primary) hypertension (4) Dyslipidemia Status: Chronic Assessment and plan: Continue statin Current Visit: Yes (5) Diabetes Status: Chronic Current Visit: Yes Qualifiers: Diabetes mellitus type: type 2 (6) Hypothyroidism Status: Acute Assessment and plan: Start Synthroid Current Visit: Yes (7) Obstructive sleep apnea Status: Chronic Current Visit: Yes (8) History of CVA (cerebrovascular accident) Status: Chronic Current Visit: No (9) Obesity Status: Chronic Current Visit: Yes Qualifiers: Body mass index: BMI 38.0-38.9 (10) Coronary artery disease Status: Chronic Current Visit: Yes Hospitalist: Subjective Interval history: Patient seen and examined. No acute events overnight. Case discussed with nursing staff. Labs reviewed. Left heart cath unremarkable. Patient continues to have bradycardia. IV Synthroid added. Case discussed with Dr. Baeza on rounds. Exam - Constitutional Vitals: Period Temp Pulse Resp BP Sys/Dee Pulse Ox Last 24 Hr 97.6 F-98.6 F 40-52 16-20 120-167/54-82 90-100 Exam: Constitutional System: No distress. No tremulousness. Head: Normocephalic, atraumatic. Ears, Nose and Throat System: No pain or tenderness. No epistaxis or discharge Eyes System: Pupils equal, round, and reactive. Extraocular muscles intact. Neck: Supple, without adenopathy, No jugular venous distention. No thyromegaly, neck mass, or prior surgery apparent. Respiratory System: Chest clear to auscultation. Cardiovascular System: Heart with bradycardic rate and rhythm. No murmur. GI System: Abdomen soft, nontender. Normo active bowel sounds present. Musculoskeletal System: limbs with no pedal edema. Full distal pulses. Normal capillary refill. Neurological System: No discernable sensory deficit. No aphasia Psychiatric System: Conversation is rational Results - Labs CBC & BMP: 11/27/16 05:17 11/27/16 05:17 Lab Results: I have reviewed the past 24 hour labs Specialty Discharge - Follow Up or Referrals
[2016-11-27] MEDS: MORPHINE 2 MG/1 ML SYRINGE IV PRN ×2 (13:43→13:44)
[2016-11-27] MEDS ORDERED: LEVOTHYROXINE 100 MCG VIAL IV ONE (15:16)
[2016-11-27] MEDS: ATORVASTATIN 40 MG TABLET PO SCH (20:27)
[2016-11-28 05:11] LABS: Basophils # 0.1 10*3/uL (0.0-0.2); Basophils % 1.4 % (0.0-0.8); Eosinophils # 0.2 10*3/uL (0.0-0.87); Eosinophils % 5.8 % (0.00-10.9); Hematocrit 38.8 VOL% (35.7-47.0); Hemoglobin 12.6 GM/DL (12.0-16.0); Immature Granulocytes % 0.5 %; Immature Granulocytes Absolute 0.02 #; Lymphocytes # 1.6 10*3/uL (1.4-4.0); Lymphocytes % 38.8 % (21.3-54.2); Mean Corpuscular HGB Conc 32.5 GM/DL (32-36); Mean Corpuscular Hemoglobin 30 PG (27-34); Mean Corpuscular Volume 92.8 FL (87-102); Mean Platelet Volume 12.5 FL (9.6-12.0); Monocytes # 0.7 10*3/uL (0.11-0.8); Monocytes % 15.8 % (1.7-12.7); Neutrophils # 1.6 10*3/uL (1.4-7.4); Neutrophils % 37.7 % (38.7-73.9); Platelet Count 119 T/CUMM (130-400); Red Blood Count 4.18 MC/CUMM (3.8-5.5); Red Cell Distribution Width 13.8 % (9.3-17.3); White Blood Count 4.2 T/CUMM (4-12)
[2016-11-28 05:41] LABS: Calcium 8.9 MG/DL (8.5-10.1); Osmolality,Calculated 282.1 MOS/KG (273-304); Potassium 3.7 MMOL/L (3.5-5.1)
[2016-11-28] MEDS: LEVOTHYROXINE 25 MCG TABLET PO SCH (06:21)
[2016-11-28 07:28] LABS: Eosinophils 2 % (0-10); Hypochromasia Slight; Lymphocytes 47 % (20-55); Platelet Estimate Decreased; Segmented Neutrophils 37 % (50-85); Total Cells Counted 100
[2016-11-28] MEDS ORDERED: LEVOTHYROXINE 100 MCG VIAL IV ONE (08:00)
[2016-11-28] MEDS: PANTOPRAZOLE 40 MG TABLET PO SCH (09:31)
[2016-11-28] MEDS: hydroCHLOROthiazide 12.5 MG CAPSULE PO SCH (09:32)
[2016-11-28] MEDS: ESCITALOPRAM 10 MG TABLET PO SCH (09:32)
[2016-11-28] MEDS: ASPIRIN EC 325 MG TABLET PO SCH (09:32)
[2016-11-28] MEDS: ENOXAPARIN 40 MG/0.4 ML SYRINGE SUBCUT SCH (09:32)
--- NOTE | 2016-11-28 14:34 | Cardiology Progress Note ---
Assessment and Plan (1) Bradycardia Status: Acute Assessment and plan: Patient is bradycardic and may be associated with hypothyroidism. Patient arteries are better with her thyroid replacement. Current Visit: Yes (2) Hypertension Status: Chronic Assessment and plan: Vital signs are fairly stable at this time. We will continue to monitor while in the hospital. Current Visit: Yes Qualifiers: Hypertension type: essential hypertension Qualified Code(s): I10 - Essential (primary) hypertension (3) Dyslipidemia Status: Chronic Assessment and plan: On statin drug and will continue this. Her lipids were not controlled upon admission but her Lipitor apparently also been stopped as an outpatient. It has been restarted. Current Visit: Yes (4) Diabetes Status: Chronic Assessment and plan: Hospital service is following this. Current Visit: Yes Qualifiers: Diabetes mellitus type: type 2 (5) Hypothyroidism Status: Acute Assessment and plan: This is truly a chronic issue for some reason her levothyroxine was stopped. Certainly this may be contributing to her bradycardia. Her therapies been reinstated. Current Visit: Yes (6) Obesity Status: Chronic Assessment and plan: Certainly she would benefit from weight loss. It is unlikely though she is going to make lifestyle changes to lose weight. Current Visit: Yes Qualifiers: Body mass index: BMI 38.0-38.9 (7) Coronary artery disease Status: Chronic Assessment and plan: Post catheterization is doing well. She has moderate coronary disease it worse and will treat medically. Current Visit: Yes Cardiology - PN: Subj Interval history: From cardiac standpoint patient doing well without chest pain or shortness of breath. She done well for catheterization without any groin issues. Again I explained our findings. I do not think the symptoms she is having is cardiac in nature. M I discussed the patient late yesterday she noted that her physician by her primary care physician has stopped a lot of her medications. I reviewed our old records and about 2 months ago when I saw the patient she was on levothyroxine as well as other medications. The patient states that her physician stopped all these medication. The patient was on levothyroxine 112 mcg daily. I have discussed this with Dr. Messina. Exam (Progress Note) - Constitutional Vitals: Period Temp Pulse Resp BP Sys/Dee Pulse Ox Last 24 Hr 97.4 F-98.1 F 48-53 16-18 133-150/56-66 77-98 Exam: General appearance: Alert cooperative overweight/obese female. HEENT: Atraumatic normocephalic. Eye exam with PERRL, EOMI. Neck: Trachea midline supple. No thyromegaly. Lungs: Clear without rales or, wheezes. Cardiac: Regular rate and rhythm little bradycardic but no gross murmur gallop or rub. Chest wall: Nontender. Abdomen: Obese soft nontender. Bowel sounds present. Extremities/muscular: Right groin cath site is stable. Extremities are benign. Neurologic: Cooperative without focal deficits. Psychiatric: Cognitive function grossly intact. Dermatologic: Stable. Result/EKG - Labs CBC & BMP: 11/28/16 04:59 11/28/16 04:59 Lab Results: I have reviewed the past 24 hour labs Labs: Laboratory Results - last 24 hr 11/28/16 11/28/16 11/28/16 04:59 04:59 04:59 WBC 4.2 RBC 4.18 Hgb 12.6 Hct 38.8 MCV 92.8 MCH 30 MCHC 32.5 RDW 13.8 Plt Count 119 L MPV 12.5 H Neut % (Auto) 37.7 L Lymph % (Auto) 38.8 [place] % (Auto) 15.8 H Eos % (Auto) 5.8 Baso % (Auto) 1.4 H Neut # (Auto) 1.6 Lymph # (Auto) 1.6 [place] # (Auto) 0.7 Eos # (Auto) 0.2 Baso # (Auto) 0.1 Total Counted 100 Immature Gran % 0.5 Nucleated RBC % 0.0 Immature Gran # 0.02 Segmented Neutrophils 37 L Lymphocytes 47 Monocytes 14 Eosinophils 2 Nucleated RBCs # 0.00 Platelet Estimate Decreased Immature Plt Fraction 0.0 Hypochromasia Slight Sodium 142 Potassium 3.7 Chloride 103 Carbon Dioxide 33 H Anion Gap 9.7 BUN 13 Creatinine 1.20 H GFR Calculation 72 BUN/Creatinine Ratio 10.00 Glucose 97 Calculated Osmolality 282.1 Calcium 8.9 Magnesium 2.0 TSH 3rd Generation 42.600 H - Impressions Impressions: Telemetry was sinus rhythm heart rate is actually better now on the upper 40s and 50s. Specialty Discharge - Follow Up or Referrals
--- NOTE | 2016-11-28 15:47 | Hospitalist Progress Note ---
Assessment and Plan (1) Chest pain Status: Resolved Assessment and plan: No significant coronary artery disease requiring stenting on this admissions heart cath. Current Visit: Yes (2) Bradycardia Status: Acute Assessment and plan: Resume Synthroid for severe hypothyroidism. Current Visit: Yes (3) Hypertension Status: Chronic Assessment and plan: Continue home medications Current Visit: Yes Qualifiers: Hypertension type: essential hypertension Qualified Code(s): I10 - Essential (primary) hypertension (4) Dyslipidemia Status: Chronic Assessment and plan: Continue statin Current Visit: Yes (5) Diabetes Status: Chronic Current Visit: Yes Qualifiers: Diabetes mellitus type: type 2 (6) Hypothyroidism Status: Acute Assessment and plan: Start Synthroid. The patient was previously on Synthroid 112 mcg daily. This was stopped by her primary care physician as an outpatient approximately 1-2 months ago. It has been restarted. Current Visit: Yes (7) Obstructive sleep apnea Status: Chronic Current Visit: Yes (8) History of CVA (cerebrovascular accident) Status: Chronic Current Visit: No (9) Obesity Status: Chronic Current Visit: Yes Qualifiers: Body mass index: BMI 38.0-38.9 (10) Coronary artery disease Status: Chronic Current Visit: Yes Hospitalist: Subjective Interval history: Case discussed with Dr. Baeza on rounds. Patient seen and examined. No acute events overnight. Case discussed with nursing staff. Labs reviewed. The patient was previously on levothyroxine which has been discontinued by her primary care physician. It was restarted during this hospitalization. Exam - Constitutional Vitals: Period Temp Pulse Resp BP Sys/Dee Pulse Ox Last 24 Hr 97.4 F-98.1 F 48-53 16-18 133-150/56-66 77-98 Exam: Constitutional System: No distress. No tremulousness. Head: Normocephalic, atraumatic. Ears, Nose and Throat System: No pain or tenderness. No epistaxis or discharge Eyes System: Pupils equal, round, and reactive. Extraocular muscles intact. Neck: Supple, without adenopathy, No jugular venous distention. No thyromegaly, neck mass, or prior surgery apparent. Respiratory System: Chest clear to auscultation. Cardiovascular System: Heart with bradycardic rate and rhythm. No murmur. GI System: Abdomen soft, nontender. Normo active bowel sounds present. Musculoskeletal System: limbs with no pedal edema. Full distal pulses. Normal capillary refill. Neurological System: No discernable sensory deficit. No aphasia Psychiatric System: Conversation is rational Results - Labs CBC & BMP: 11/28/16 04:59 11/28/16 04:59 Lab Results: I have reviewed the past 24 hour labs Specialty Discharge - Follow Up or Referrals
[2016-11-28] MEDS: ATORVASTATIN 40 MG TABLET PO SCH (21:24)
[2016-11-29 05:47] LABS: Basophils # 0.1 10*3/uL (0.0-0.2); Basophils % 1.6 % (0.0-0.8); Eosinophils # 0.3 10*3/uL (0.0-0.87); Eosinophils % 6.8 % (0.00-10.9); Hemoglobin 13.5 GM/DL (12.0-16.0); Immature Granulocytes % 0.3 %; Immature Granulocytes Absolute 0.01 #; Lymphocytes # 1.5 10*3/uL (1.4-4.0); Lymphocytes % 39.9 % (21.3-54.2); Mean Corpuscular HGB Conc 32.9 GM/DL (32-36); Mean Corpuscular Hemoglobin 30 PG (27-34); Mean Corpuscular Volume 91.9 FL (87-102); Mean Platelet Volume 13.2 FL (9.6-12.0); Monocytes # 0.5 10*3/uL (0.11-0.8); Monocytes % 14.4 % (1.7-12.7); Neutrophils # 1.4 10*3/uL (1.4-7.4); Platelet Count 121 T/CUMM (130-400); Red Blood Count 4.46 MC/CUMM (3.8-5.5); Red Cell Distribution Width 13.5 % (9.3-17.3); White Blood Count 3.7 T/CUMM (4-12)
[2016-11-29 06:14] LABS: Eosinophils 5 % (0-10); Giant Platelets Few; Hypochromasia 1+; Lymphocytes 42 % (20-55); Platelet Estimate Normal; Segmented Neutrophils 38 % (50-85); Total Cells Counted 100
[2016-11-29 06:15] LABS: Atypical Lymphocytes Few
[2016-11-29 06:35] LABS: Calcium 8.8 MG/DL (8.5-10.1); Magnesium 1.7 MG/DL (1.8-2.4); Osmolality,Calculated 278.4 MOS/KG (273-304); Potassium 3.6 MMOL/L (3.5-5.1)
[2016-11-29] MEDS ORDERED: LEVOTHYROXINE 112 MCG TABLET PO SCH (07:00)
[2016-11-29 08:05] VITALS: BP 160/70
[2016-11-29] MEDS: ENOXAPARIN 40 MG/0.4 ML SYRINGE SUBCUT SCH (08:33)
[2016-11-29] MEDS: ESCITALOPRAM 10 MG TABLET PO SCH (08:34)
[2016-11-29] MEDS: hydroCHLOROthiazide 12.5 MG CAPSULE PO SCH (08:34)
[2016-11-29] MEDS: ASPIRIN EC 325 MG TABLET PO SCH (08:34)
[2016-11-29] MEDS: PANTOPRAZOLE 40 MG TABLET PO SCH (08:34)
--- NOTE | 2016-11-29 09:15 | Discharge Summary ---
Hospital Course - Hospital Course Hospital Course: 76-year-old -[place] female with history of CAD, hypertension, arthritis , asthma, and stroke admitted by the hospitalist service on 11/25/2016 with chest pain and bradycardia. Patient's beta-blockers were held and cardiology was consulted. Dr. Baeza took her for left heart cath on 11/26/2016 where he found no significant lesions. Her blood pressure medications have been adjusted and new prescriptions were written. She was found to have hypothyroidism and her Synthroid had been stopped approximately 1-2 months ago. Her bradycardia may be associated with hypothyroidism. This was restarted so it may take a bit for her heart rate to respond. Patient was also found to have dyslipidemia. Her lipids were not controlled and her Lipitor was restarted. Patient is feeling much better with no complaints of chest pain or shortness of breath. She will be discharged to home with a follow-up with Dr. Baeza in 1-2 weeks and a follow-up with her PCP, Dr. Polanco, in 2-4 weeks with labs. Complete discharge instructions were given. Care coordination, chart review, and completed discharge paperwork took approximately 37 minutes. I have seen and examined Mrs Neal also and agree with the summary here. She is feeling good and wants to go home. She plans to stay on her thyroid replacement indefinitely. I encouraged her to keep her follow up appointments with Dr Polanco and Dr Baeza. - Time spent with patient Time with patient DS: Greater than 30 minutes Specialty Discharge - Follow Up or Referrals Follow up with: Sapna Polanco [Primary Care Provider] - 12/07/16 2:00 pm (TSH FREE T4 ) Kaushal Baeza MD [Physician] - 12/13/16 9:40 am (Groin check, BMP and EKG. Come to office at 8:40am for lab.) Chelsie Paula MD [Physician] - 12/13/16 1:45 pm (Noncompliant with CPAP as it is leaking.) Discharge Plan - Discharge Data Disposition: Disch To Home/Self Care Condition at Discharge: Stable Discharge Diet: heart healthy Activity: resume usual activities as tolerated Hygiene: may shower Contact your physician if you experience:: Shortness of breath - Discharge Medications New Isosorbide Mononitrate [Imdur] 30 mg PO DAILY #30 tablet Aspirin EC Tab 325 mg PO DAILY tablet Atorvastatin [Lipitor] 40 mg PO BEDTIME #30 tablet hydroCHLOROthiazide [Hydrochlorothiazide] 25 mg PO QAM #30 tablet Levothyroxine Tab [Synthroid Tab] 112 mcg PO DAILY@0700 #30 tablet Continue tiZANidine [Zanaflex] 2 - 4 mg PO BEDTIME PRN PRN Reason: MUSCLE SPASMS Escitalopram [Lexapro] 5 - 10 mg PO QAM Amlodipine Besylate/Benazepril [Amlodipine-Benazepril 10-40 mg] 1 each PO QAM Zolpidem Tartrate 10 mg PO BEDTIME PRN PRN Reason: Insomnia Omeprazole 20 mg PO QAM Discontinued Metoprolol Succinate 150 mg PO QAM Losartan [Cozaar] 100 mg PO QAM hydroCHLOROthiazide [Hydrochlorothiazide] 12.5 mg PO QAM Aspirin EC Tab 81 mg PO QAM - Follow Up or Referral Follow Up: Sapna Polanco [Primary Care Provider] - 12/07/16 2:00 pm (TSH FREE T4 ) Kaushal Baeza MD [Physician] - 12/13/16 9:40 am (Groin check, BMP and EKG. Come to office at 8:40am for lab.) Chelsie Paula MD [Physician] - 12/13/16 1:45 pm (Noncompliant with CPAP as it is leaking.) - Forms/Instructions Forms: Acute Care Work/School Release Instructions: Coronary Artery Disease (GEN), Left Heart Catheterization (DC), Heart Healthy Diet (GEN) Exam - Constitutional Vitals: Period Temp Pulse Resp BP Sys/Dee Pulse Ox Last 24 Hr 20 Exam: 76-year-old -[place] female, no acute distress, alert and oriented Chest clear CV bradycardic but regular Abdomen soft and nontender Extremities with no edema DS: Provider Date of admission: 11/25/16 23:15 Primary care physician: Sapna Polanco Attending physician on admission: Kaushal Lam MD Consults: 11/25/16 23:15 Consult to Cardiac Rehabilitation [CONS] Routine Reason for Cardiac Rehabilitation: Risk Factor Modification Other Consult Comment: Evaluate and recommend 11/25/16 23:18 Consult to Physician [CONS] Routine Comment: Aryan's patient with chest pain and bradycardia Consulting Provider: Cardiology - [facility] Consult to Specialist Group: Cardiology Person Notified: gaston Date Notified: 11/26/16 Time Notified: 08:30 11/26/16 10:10 Consult to Sleep Center [CONS] Routine Reason for Sleep Center: Sleep Center Physician Consult Comment: Noncompliant with CPAP machine at home due to machine malfunction 11/26/16 12:35 Consult to Cardiac Rehabilitation [CONS] Routine Reason for Cardiac Rehabilitation: Risk Factor Modification Other Consult Comment: Evaluate and recommend Discharging clinician: RONNY Gold Expected date of discharge: 11/29/16
--- NOTE | 2016-11-29 09:21 | Cardiology Progress Note ---
Assessment and Plan (1) Chest pain Status: Resolved Assessment and plan: SEE PLAN OF CARE LISTED BELOW. Current Visit: Yes (2) Dyslipidemia Status: Chronic Assessment and plan: SEE PLAN OF CARE LISTED BELOW. Current Visit: Yes (3) Diabetes Status: Chronic Assessment and plan: SEE PLAN OF CARE LISTED BELOW. Current Visit: Yes Qualifiers: Diabetes mellitus type: type 2 (4) Hypothyroidism Status: Acute Assessment and plan: SEE PLAN OF CARE LISTED BELOW. Current Visit: Yes (5) Obstructive sleep apnea Status: Chronic Assessment and plan: SEE PLAN OF CARE LISTED BELOW. Current Visit: Yes (6) History of CVA (cerebrovascular accident) Status: Chronic Assessment and plan: SEE PLAN OF CARE LISTED BELOW. Current Visit: No (7) Obesity Status: Chronic Assessment and plan: SEE PLAN OF CARE LISTED BELOW. Current Visit: Yes Qualifiers: Body mass index: BMI 38.0-38.9 (8) Coronary artery disease Status: Chronic Assessment and plan: SEE PLAN OF CARE LISTED BELOW. Current Visit: Yes (9) Bradycardia Status: Acute Assessment and plan: SEE PLAN OF CARE LISTED BELOW. Current Visit: Yes (10) Hypertension Status: Chronic Assessment and plan: SEE PLAN OF CARE LISTED BELOW. Current Visit: Yes Qualifiers: Hypertension type: essential hypertension Qualified Code(s): I10 - Essential (primary) hypertension Cardiology - PN: Subj Interval history: PROMOTIONAL MODEL: Dr. Baeza PCP: Dr. Goodman RAMIREZ Ms. Neal is a 76 year old female with known history of coronary artery disease, routinely followed by Dr. Baeza. Cardiac risk factors include: Known CAD, diabetes, hypertension, dyslipidemia, obesity, sedentary lifestyle and former smoker (quit in 2011). Past medical history includes: Rheumatoid arthritis, asthma, stroke in 2004, hypothyroidism, obstructive sleep apnea and depression. Patient underwent heart catheterization March 2011 and received stent to RCA. She has been on dual antiplatelet therapy until approximately 1 year ago. Plavix was stopped due to hematuria. She reports that this has resolved since stopping her Plavix. Patient has not had stress test performed after heart catheterization 2011. She does tell me that she had one prior to having her heart cath and she did not tolerate this well. She reports that she did not like with the Lexiscan made her feel. She does not want to have this done again if not necessary. No recent echocardiogram noted in EMR. Patient was last seen in the cardiology clinic by Dr. Baeza July 2016. Patient presented to [facility] November 25, 2016 with complaints of chest pain for the last 3 weeks. Her chest pain sounded typical for angina as it was very similar as before when she required PCI. Subsequently , she underwent left heart catheterization per Dr. Baeza November 26, 2016. She was noted to have moderate coronary disease. This is being treated medically. Her chest pain was not thought to be cardiac in nature. NOVEMBER 29, 2016 Patient was seen and examined on the telemetry unit. She is doing well this morning without cardiac complaints. She denies chest pain, heaviness or tightness. Denies shortness of breath, orthopnea and dyspnea on exertion. She has done well post heart catheterization and has been without complications. Right groin is soft without bleeding, hematoma and bruit. She has ambulated without difficulty. Right groin remained stable post ambulation. I have discussed her groin precautions with her. She verbalizes understanding. She continues to be mildly bradycardic with resting heart rates in the 50s. She is asymptomatic with this. Suspect that this is related to her hypothyroidism. I have discussed with her that she will need to follow with her PCP closely with this. She verbalized understanding. Patient will need a follow-up appoint with Dr. Baeza in 1-2 weeks with a groin check, EKG and BMP. I will discuss with Dr. Barnes and await his additional recommendations. Patient is stable for discharge home from a cardiac standpoint. Of note, patient is unable to tolerate beta-blockade as her resting heart rate is in the 50s. IMPRESSION AND PLAN 1. CHEST PAIN - Resolved. Thought to be noncardiac as heart catheterization did not reveal any significant changes from previous. Treating medically. Continue aspirin, lipid-lowering agent, nitrates and SANTOSH inhibitor. Heart rate unable to tolerate beta-blockade. Hopefully, this can be initiated as an outpatient. 2. KNOWN CAD - She did receive PCI to RCA March 2011. Continue aspirin, nitrates, lipid-lowering agent and SANTOSH inhibitor. Unable to tolerate beta- blockade as she is currently bradycardic. 3. HYPOTHYROIDISM - Improving. Patient will need to follow-up with PCP closely. Suspect this is contributing to her bradycardia. 4. BRADYCARDIA - Continuing to hold beta blockade. Suspect that this is related to patient's significant hypothyroidism. I will defer treatment of this to hospital medicine. 5. HYPERTENSION - Systolic blood pressure 160s this morning. I have increased hydralazine. 6. DIABETES - Management per attending. Blood sugars well controlled. 7. DYSLIPIDEMIA - Continue lipid-lowering agent. Repeat lipid panel in 4-6 weeks. 8. OBESITY - Weight loss encouraged via regular exercise and dietary restriction. 9. HISTORY OF CVA - Continue aspirin. 10. OBSTRUCTIVE SLEEP APNEA - Patient reports that she has not been using her CPAP machine as it is leaking. We will schedule outpatient follow-up with Dr. Paula. Exam (Progress Note) - Constitutional Vitals: Period Temp Pulse Resp BP Sys/Dee Pulse Ox Last 24 Hr 97.8 F-98.2 F 49-55 16-20 132-160/60-70 90-98 Exam: General appearance: Alert cooperative overweight/obese female. HEENT: Atraumatic normocephalic. Eye exam with PERRL, EOMI. Neck: Trachea midline supple. No thyromegaly. Lungs: Clear without rales or, wheezes. Cardiac: Regular rate and rhythm little bradycardic but no gross murmur gallop or rub. Chest wall: Nontender. Abdomen: Obese soft nontender. Bowel sounds present. Extremities/muscular: Right groin cath site is stable. Extremities are benign. Neurologic: Cooperative without focal deficits. Psychiatric: Cognitive function grossly intact. Dermatologic: Stable. Result/EKG - Labs CBC & BMP: 11/29/16 05:07 11/29/16 05:07 Lab Results: I have reviewed the past 24 hour labs Labs: Laboratory Results - last 24 hr 11/29/16 11/29/16 05:07 05:07 WBC 3.7 L RBC 4.46 Hgb 13.5 Hct 41.0 MCV 91.9 MCH 30 MCHC 32.9 RDW 13.5 Plt Count 121 L MPV 13.2 H Neut % (Auto) 37.0 L Lymph % (Auto) 39.9 [place] % (Auto) 14.4 H Eos % (Auto) 6.8 Baso % (Auto) 1.6 H Neut # (Auto) 1.4 Lymph # (Auto) 1.5 [place] # (Auto) 0.5 Eos # (Auto) 0.3 Baso # (Auto) 0.1 Total Counted 100 Immature Gran % 0.3 Nucleated RBC % 0.0 Immature Gran # 0.01 Segmented Neutrophils 38 L Lymphocytes 42 Monocytes 14 Eosinophils 5 Basophils 1.0 H Nucleated RBCs # 0.00 Atypical Lymphocytes Few Platelet Estimate Normal Giant Platelets Few Immature Plt Fraction 0.0 Hypochromasia 1+ Sodium 140 Potassium 3.6 Chloride 101 Carbon Dioxide 35 H Anion Gap 7.6 BUN 13 Creatinine 1.20 H GFR Calculation 71 BUN/Creatinine Ratio 10.00 Glucose 95 Calculated Osmolality 278.4 Calcium 8.8 Magnesium 1.7 L Specialty Discharge - Follow Up or Referrals Follow up with: Kaushal Baeza MD [Physician] - 2 Weeks (Groin check, BMP and EKG.) Chelsie Paula MD [Physician] - 2 Weeks (Noncompliant with CPAP as it is leaking.) Sapna Polanco [Primary Care Provider] - 2 Weeks (TSH FREE T4 )
[2016-11-29] MEDS ORDERED: hydroCHLOROthiazide 25 MG TABLET PO SCH (09:30)
[2016-11-29] MEDS ORDERED: ISOSORBIDE MONONITRATE 30 MG TABLET PO SCH (09:30)
--- NOTE | 2016-12-01 20:19 | Order Completion Report ---
See report scanned to EMR
== END 2016-11-29 11:28 | disposition home or self-care (01) ==
LOC: N.ED 18:47 → N.TELEN 18:47 → SUATTDRO 23:15 → N.TELEN 11-26 00:17
PROVIDERS: ADMIT Internal Medicine; ATTEND Internal Medicine
PROC: CLCCHCL (ICD-10-PCS; 2016-11-26 11:45)

== ENCOUNTER 2019-03-28 11:20 | Observation (INO) ==
[2019-03-28] MEDS ORDERED: ENOXAPARIN 100 MG/ML SYRINGE SUBCUT STA (11:42)
[2019-03-28] MEDS ORDERED: ASPIRIN 325 MG TABLET PO STA (11:42)
[2019-03-28 11:54] LABS: Basophils # 0.1 10*3/uL (0.0-0.2); Basophils % 1.6 % (0.0-0.8); Eosinophils # 0.4 10*3/uL (0.0-0.87); Eosinophils % 6.5 % (0.00-10.9); Hematocrit 43.8 VOL% (35.7-47.0); Hemoglobin 13.9 GM/DL (12.0-16.0); Immature Granulocytes % 0.4 %; Immature Granulocytes Absolute 0.02 #; Lymphocytes # 1.3 10*3/uL (1.4-4.0); Lymphocytes % 22.4 % (21.3-54.2); Mean Corpuscular HGB Conc 31.7 GM/DL (32-36); Mean Corpuscular Volume 93.6 FL (87-102); Mean Platelet Volume 11.7 FL (9.6-12.0); Monocytes % 14.5 % (1.7-12.7); Neutrophils % 54.6 % (38.7-73.9); Platelet Count 200 T/CUMM (130-400); Red Blood Count 4.68 MC/CUMM (3.8-5.5); Red Cell Distribution Width 12.9 % (9.3-17.3); White Blood Count 5.6 T/CUMM (4-12)
[2019-03-28 12:18] LABS: Alanine Aminotransferase 19 U/L (13-56); Albumin 3.3 G/DL (3.4-5.0); Alkaline Phosphatase 104 U/L (45-117); Aspartate Amino Transferase 16 U/L (0-37); Bilirubin,Total < 0.39 MG/DL (0.2-1.0); Blood Urea Nitrogen 13 MG/DL (7-18); Calcium 8.8 MG/DL (8.5-10.1); Estimated Glom Filtration Rate 87 ML/MIN; Glucose 109 MG/DL (74-106); Osmolality,Calculated 279.4 MOS/KG (273-304); Total Protein 7.8 G/DL (6.4-8.3)
[2019-03-28] MEDS ORDERED: ENOXAPARIN 30 MG/0.3 ML SYRINGE ONE (12:18)
[2019-03-28] MEDS ORDERED: DEXTROSE 10% 25 GM/250 ML BAG IV PRN (15:03)
[2019-03-28] MEDS ORDERED: MAGNESIUM SULF RIDER 4 GM in PREMIX 1 EACH IV PRN (15:03)
[2019-03-28] MEDS ORDERED: ALUM/MAG/SIMETH/LIDO VISC 1:1 30 ML BOTTLE PO PRN (15:03)
[2019-03-28] MEDS ORDERED: GLUCAGON 1 MG VIAL IM PRN (15:03)
[2019-03-28] MEDS ORDERED: NITROGLYCERIN SL 0.4 MG TABLET SL PRN ×2 (15:03→17:00)
[2019-03-28] MEDS ORDERED: POTASSIUM CHLORIDE 20 MEQ TABLET PO PRN ×2 (15:03)
[2019-03-28] MEDS ORDERED: MAGNESIUM SULF RIDER 2 GM in PREMIX 1 EACH IV PRN (15:03)
[2019-03-28 16:11] LABS: Troponin I < 0.015 NG/ML (0.00-0.045)
[2019-03-28] MEDS ORDERED: hydroCHLOROthiazide 12.5 MG CAPSULE PO ONE (18:40)
[2019-03-28] MEDS ORDERED: amLODIPine 10 MG TABLET PO ONE (18:40)
[2019-03-28] MEDS ORDERED: ISOSORBIDE MONONITRATE 30 MG TABLET PO ONE (18:41)
[2019-03-28 19:03] LABS: Troponin I < 0.015 NG/ML (0.00-0.045)
[2019-03-28] MEDS ORDERED: ATORVASTATIN 40 MG TABLET PO SCH (21:00)
[2019-03-28 23:13] LABS: Troponin I < 0.015 NG/ML (0.00-0.045)
[2019-03-29 07:19] LABS: Basophils # 0.1 10*3/uL (0.0-0.2); Basophils % 1.7 % (0.0-0.8); Eosinophils # 0.3 10*3/uL (0.0-0.87); Eosinophils % 7.5 % (0.00-10.9); Hematocrit 38.2 VOL% (35.7-47.0); Hemoglobin 12.1 GM/DL (12.0-16.0); Immature Granulocytes % 0.7 %; Immature Granulocytes Absolute 0.03 #; Lymphocytes # 1.1 10*3/uL (1.4-4.0); Lymphocytes % 27.4 % (21.3-54.2); Mean Corpuscular HGB Conc 31.7 GM/DL (32-36); Mean Corpuscular Volume 93.9 FL (87-102); Monocytes % 17.4 % (1.7-12.7); Neutrophils % 45.3 % (38.7-73.9); Platelet Count 156 T/CUMM (130-400); Red Blood Count 4.07 MC/CUMM (3.8-5.5); Red Cell Distribution Width 12.8 % (9.3-17.3); White Blood Count 4.1 T/CUMM (4-12)
[2019-03-29] MEDS: LEVOTHYROXINE 88 MCG TABLET PO SCH (07:31)
[2019-03-29 07:40] LABS: Albumin 2.9 G/DL (3.4-5.0); Bilirubin,Total 0.8 MG/DL (0.2-1.0); Calcium 8.7 MG/DL (8.5-10.1); Osmolality,Calculated 276.5 MOS/KG (273-304); Risk Ratio 3.33; VLDL CHOLESTEROL 26.8 MG/DL
[2019-03-29 07:44] LABS: Eosinophils 7 % (0-10); Hypochromasia 1+; Lymphocytes 28 % (20-55); Platelet Estimate Adequate; Segmented Neutrophils 49 % (50-85); Total Cells Counted 100
[2019-03-29] MEDS ORDERED: DOCUSATE SODIUM 100 MG CAPSULE PO PRN (08:21)
[2019-03-29] MEDS ORDERED: ASPIRIN 325 MG TABLET PO ONE (08:24)
[2019-03-29] MEDS ORDERED: POTASSIUM CHLORIDE RIDER 10 MEQ in PREMIX 1 EACH IV PRN (08:24)
[2019-03-29] MEDS ORDERED: DIAZEPAM 5 MG TABLET PO ONE (08:24)
[2019-03-29] MEDS ORDERED: diphenhydrAMINE CAP 25 MG CAPSULE PO ONE (08:24)
[2019-03-29] MEDS ORDERED: LIDOCAINE 1% 20 ML VIAL ONE (08:31)
[2019-03-29] MEDS: hydroCHLOROthiazide 25 MG TABLET PO SCH (08:53)
[2019-03-29] MEDS: ISOSORBIDE MONONITRATE 30 MG TABLET PO SCH (08:53)
[2019-03-29] MEDS: SODIUM CHLORIDE 0.9% 1,000 ML IV SCH (09:00)
[2019-03-29] MEDS ORDERED: MIDAZOLAM 2 MG/2 ML VIAL ONE (09:02)
[2019-03-29] MEDS ORDERED: fentaNYL 100 MCG/2 ML VIAL ONE (09:02)
[2019-03-29] MEDS ORDERED: ADENOSINE 90 MG/30 ML VIAL IV ONE ×2 (09:43→10:08)
[2019-03-29] MEDS: ASPIRIN EC 81 MG TABLET PO SCH (10:24)
[2019-03-29] MEDS: ESCITALOPRAM 10 MG TABLET PO SCH (11:22)
[2019-03-29] MEDS: amLODIPine 10 MG TABLET PO SCH (11:23)
[2019-03-29] MEDS: CHOLECALCIFEROL 1,000 UNIT TABLET PO SCH (11:23)
[2019-03-29] MEDS ORDERED: ACETAMINOPHEN 325 MG TABLET PO PRN (19:43)
[2019-03-29] MEDS ORDERED: ATORVASTATIN 80 MG TABLET PO SCH (21:00)
[2019-03-30 03:29] LABS: Basophils # 0.1 10*3/uL (0.0-0.2); Basophils % 1.3 % (0.0-0.8); Eosinophils # 0.2 10*3/uL (0.0-0.87); Eosinophils % 3.4 % (0.00-10.9); Hematocrit 38.4 VOL% (35.7-47.0); Hemoglobin 12.2 GM/DL (12.0-16.0); Immature Granulocytes % 0.3 %; Immature Granulocytes Absolute 0.02 #; Lymphocytes # 1.2 10*3/uL (1.4-4.0); Lymphocytes % 20.3 % (21.3-54.2); Mean Corpuscular HGB Conc 31.8 GM/DL (32-36); Mean Corpuscular Volume 92.8 FL (87-102); Mean Platelet Volume 11.7 FL (9.6-12.0); Monocytes % 13.7 % (1.7-12.7); Platelet Count 181 T/CUMM (130-400); Red Blood Count 4.14 MC/CUMM (3.8-5.5); Red Cell Distribution Width 12.8 % (9.3-17.3); White Blood Count 6.1 T/CUMM (4-12)
[2019-03-30 03:49] LABS: Calcium 8.8 MG/DL (8.5-10.1); Osmolality,Calculated 275.7 MOS/KG (273-304)
[2019-03-30 03:53] LABS: Albumin 2.9 G/DL (3.4-5.0); Bilirubin,Total 0.6 MG/DL (0.2-1.0); Calcium 8.9 MG/DL (8.5-10.1); Osmolality,Calculated 279.4 MOS/KG (273-304); Total Protein 7.1 G/DL (6.4-8.3)
[2019-03-30] MEDS: SODIUM CHLORIDE 0.9% 1,000 ML IV SCH (05:00)
[2019-03-30] MEDS: LEVOTHYROXINE 88 MCG TABLET PO SCH (07:14)
[2019-03-30] MEDS: CHOLECALCIFEROL 1,000 UNIT TABLET PO SCH (09:17)
[2019-03-30] MEDS: ASPIRIN EC 81 MG TABLET PO SCH (09:18)
[2019-03-30] MEDS: hydroCHLOROthiazide 25 MG TABLET PO SCH (09:18)
[2019-03-30] MEDS: ISOSORBIDE MONONITRATE 30 MG TABLET PO SCH (09:18)
[2019-03-30] MEDS: amLODIPine 10 MG TABLET PO SCH (09:19)
[2019-03-30] MEDS: ESCITALOPRAM 10 MG TABLET PO SCH (09:19)
[2019-03-30 11:54] VITALS: BP 150/52
== END 2019-03-30 14:08 | disposition home or self-care (01) ==
LOC: EDBD → EDUNIT# → N.EDINP 11:20 → N.ED 11:20 → N.2W 16:51
PROVIDERS: ADMIT Emergency Medicine; ATTEND Emergency Medicine
PROC: CLCCHCL (ICD-10-PCS; 2019-03-29 09:15)

== ENCOUNTER 2019-12-14 19:45 | Observation (INO) ==
[2019-12-14 20:22] LABS: Basophils # 0.1 10*3/uL (0.0-0.2); Basophils % 1.3 % (0.0-0.8); Eosinophils # 0.2 10*3/uL (0.0-0.87); Eosinophils % 2.2 % (0.00-10.9); Hematocrit 42.4 VOL% (35.7-47.0); Hemoglobin 13.5 GM/DL (12.0-16.0); Immature Granulocytes % 0.6 %; Immature Granulocytes Absolute 0.04 #; Lymphocytes % 14.8 % (21.3-54.2); Mean Corpuscular HGB Conc 31.8 GM/DL (32-36); Mean Platelet Volume 11.2 FL (9.6-12.0); Neutrophils % 69.1 % (38.7-73.9); Platelet Count 186 T/CUMM (130-400); Red Blood Count 4.56 MC/CUMM (3.8-5.5); Red Cell Distribution Width 13.1 % (9.3-17.3); White Blood Count 6.8 T/CUMM (4-12)
[2019-12-14 20:39] LABS: PT Patient Result 10.3 SECS (9.8-11.9)
[2019-12-14 20:45] LABS: Albumin 3.3 G/DL (3.4-5.0); Bilirubin,Total 0.5 MG/DL (0.2-1.0); Calcium 9.5 MG/DL (8.5-10.1); Osmolality,Calculated 272.8 MOS/KG (273-304); Total Protein 8.2 G/DL (6.4-8.3)
[2019-12-14 21:00] LABS: Eosinophils 1 % (0-10); Hypochromasia 1+; Lymphocytes 11 % (20-55); Microcytosis 1+; Segmented Neutrophils 74 % (50-85); Total Cells Counted 100
[2019-12-14] MEDS ORDERED: NICOTINE 21 MG/24 HR PATCH TRANSDERM PRN (21:34)
[2019-12-14] MEDS ORDERED: GLUCAGON 1 MG VIAL IM PRN ×2 (21:34)
[2019-12-14] MEDS ORDERED: guaiFENesin/DM ER 600-30 MG TABLET PO PRN (21:34)
[2019-12-14] MEDS ORDERED: hydrALAZINE 20 MG/1 ML VIAL IV PRN (21:34)
[2019-12-14] MEDS ORDERED: DEXTROSE 50% 25 GM/50 ML VIAL IV PRN ×2 (21:34)
[2019-12-14] MEDS ORDERED: ZALEPLON 5 MG CAPSULE PO PRN (21:34)
[2019-12-14] MEDS ORDERED: ACETAMINOPHEN 325 MG TABLET PO PRN (21:34)
[2019-12-14] MEDS ORDERED: CALCIUM CARBONATE CHEW 500 MG TABLET PO PRN (21:34)
[2019-12-14] MEDS ORDERED: ALUMINUM/MAGNES/SIMETH MAX STR 30 ML UDCUP PO PRN (21:34)
[2019-12-14] MEDS ORDERED: ONDANSETRON 4 MG/2 ML VIAL IV PRN (21:34)
[2019-12-14] MEDS ORDERED: ALBUTEROL/IPRATROPIUM 3 ML NEB RESP TX PRN (21:34)
[2019-12-14] MEDS ORDERED: SIMETHICONE CHEW 125 MG TABLET PO PRN (21:34)
[2019-12-14] MEDS ORDERED: NITROGLYCERIN SL 0.4 MG TABLET SL PRN (21:37)
[2019-12-15 01:13] LABS: Bilirubin,Urine Negative (Negative); Blood, Urine Negative (Negative); Glucose,Urine (UA) Negative (Negative); Ketones,Urine Negative (Negative); Mucus,Urine Occasional /LPF (Occasional); Nitrite,Urine Negative (Negative); Protein,Urine Negative; Squamous Epithelial Cell,Urine Occasional /HPF (0-10); Urine Appearance CLEAR (Clear); Urine Color Yellow (Yellow); Urine Specific Gravity 1.011 (1.001-1.035); Urine Urobilinogen < 2.0 EU/DL (0.2-1.0); WBC,Urine 1 /HPF (0-6)
[2019-12-15 05:49] LABS: Basophils # 0.1 10*3/uL (0.0-0.2); Basophils % 1.3 % (0.0-0.8); Eosinophils # 0.2 10*3/uL (0.0-0.87); Eosinophils % 4.3 % (0.00-10.9); Hematocrit 37.3 VOL% (35.7-47.0); Hemoglobin 12.1 GM/DL (12.0-16.0); Immature Granulocytes % 0.2 %; Immature Granulocytes Absolute 0.01 #; Lymphocytes # 1.1 10*3/uL (1.4-4.0); Lymphocytes % 22.4 % (21.3-54.2); Mean Corpuscular HGB Conc 32.4 GM/DL (32-36); Mean Platelet Volume 12.3 FL (9.6-12.0); Monocytes % 17.1 % (1.7-12.7); Neutrophils % 54.7 % (38.7-73.9); Platelet Count 174 T/CUMM (130-400); Red Cell Distribution Width 12.9 % (9.3-17.3); White Blood Count 4.7 T/CUMM (4-12)
[2019-12-15] MEDS: LEVOTHYROXINE 88 MCG TABLET PO SCH (06:14)
[2019-12-15 06:15] LABS: Osmolality,Calculated 274.5 MOS/KG (273-304)
[2019-12-15 06:17] LABS: Eosinophils 4 % (0-10); Hypochromasia 1+; Lymphocytes 31 % (20-55); Microcytosis 1+; Platelet Estimate Adequate; Segmented Neutrophils 49 % (50-85); Total Cells Counted 100
[2019-12-15] MEDS: INSULIN LISPRO 100 UNIT/ML SUBCUT SCH ×4 (08:37→20:44)
[2019-12-15] MEDS ORDERED: PANTOPRAZOLE 40 MG TABLET PO SCH (09:00)
[2019-12-15] MEDS ORDERED: ENOXAPARIN 40 MG/0.4 ML SYRINGE SUBCUT SCH (09:00)
[2019-12-15] MEDS: POTASSIUM CHLORIDE 20 MEQ TABLET PO PRN ×4 (09:16→18:20)
[2019-12-15] MEDS: EZETIMIBE 10 MG TABLET PO SCH (09:16)
[2019-12-15] MEDS: amLODIPine 10 MG TABLET PO SCH (09:16)
[2019-12-15] MEDS ORDERED: DOCUSATE SODIUM 100 MG CAPSULE PO PRN (10:45)
[2019-12-15] MEDS ORDERED: SODIUM CHLORIDE 0.9% 1,000 ML IV SCH (11:00)
[2019-12-15] MEDS: RIVAROXABAN 2.5 MG TABLET PO SCH ×2 (11:10→20:43)
[2019-12-15] MEDS: CHOLECALCIFEROL 5,000 UNIT TABLET PO SCH (11:10)
[2019-12-15] MEDS ORDERED: MAGNESIUM SULF RIDER 2 GM in PREMIX 1 EACH IV ONE (15:45)
[2019-12-15] MEDS: GABAPENTIN 300 MG CAPSULE PO SCH ×2 (16:35→20:43)
[2019-12-15] MEDS ORDERED: ATORVASTATIN 40 MG TABLET PO SCH (21:00)
[2019-12-16 05:52] LABS: Basophils # 0.1 10*3/uL (0.0-0.2); Basophils % 1.2 % (0.0-0.8); Eosinophils # 0.3 10*3/uL (0.0-0.87); Eosinophils % 6.5 % (0.00-10.9); Hematocrit 36.9 VOL% (35.7-47.0); Hemoglobin 11.8 GM/DL (12.0-16.0); Immature Granulocytes % 0.5 %; Immature Granulocytes Absolute 0.02 #; Lymphocytes # 1.1 10*3/uL (1.4-4.0); Lymphocytes % 25.7 % (21.3-54.2); Mean Corpuscular Volume 92.3 FL (87-102); Mean Platelet Volume 11.8 FL (9.6-12.0); Monocytes % 17.4 % (1.7-12.7); Neutrophils % 48.7 % (38.7-73.9); Platelet Count 186 T/CUMM (130-400); White Blood Count 4.1 T/CUMM (4-12)
[2019-12-16 05:54] LABS: Calcium 8.6 MG/DL (8.5-10.1); Osmolality,Calculated 281.1 MOS/KG (273-304)
[2019-12-16] MEDS: LEVOTHYROXINE 88 MCG TABLET PO SCH (05:57)
[2019-12-16 06:17] LABS: Eosinophils 6 % (0-10); Lymphocytes 29 % (20-55); Platelet Estimate Adequate; Segmented Neutrophils 49 % (50-85); Total Cells Counted 100
[2019-12-16 06:18] LABS: Atypical Lymphocytes Few; Hypochromasia 1+; Microcytosis 1+
[2019-12-16] MEDS: INSULIN LISPRO 100 UNIT/ML SUBCUT SCH ×2 (08:40→11:52)
[2019-12-16] MEDS ORDERED: PANTOPRAZOLE 40 MG TABLET PO SCH (09:00)
[2019-12-16] MEDS: EZETIMIBE 10 MG TABLET PO SCH (09:11)
[2019-12-16] MEDS: GABAPENTIN 300 MG CAPSULE PO SCH (09:11)
[2019-12-16] MEDS: RIVAROXABAN 2.5 MG TABLET PO SCH (09:11)
[2019-12-16] MEDS: CHOLECALCIFEROL 5,000 UNIT TABLET PO SCH (09:11)
[2019-12-16] MEDS: amLODIPine 10 MG TABLET PO SCH (09:11)
[2019-12-16 12:19] VITALS: BP 147/68
== END 2019-12-16 15:37 | disposition home or self-care (01) ==
LOC: EDBD → EDUNIT# → EDSEX → N.EDINP 19:45 → N.ED 19:45 → N.TELEN 21:57
PROVIDERS: ADMIT Internal Medicine; ATTEND Internal Medicine

== ENCOUNTER 2020-10-08 10:09 | Observation (INO) ==
[2020-10-08] MEDS ORDERED: LACTULOSE 20 GM/30 ML UDCUP PO PRN (14:33)
[2020-10-08] MEDS ORDERED: ONDANSETRON 4 MG/2 ML VIAL IV PRN (14:33)
[2020-10-08] MEDS ORDERED: SIMETHICONE CHEW 125 MG TABLET PO PRN (14:33)
[2020-10-08] MEDS ORDERED: DOCUSATE SODIUM 100 MG CAPSULE PO PRN (14:33)
[2020-10-08] MEDS ORDERED: ALBUTEROL 2.5 MG/3 ML NEB RESP TX PRN (14:33)
[2020-10-08] MEDS ORDERED: ACETAMINOPHEN 325 MG TABLET PO PRN (14:33)
[2020-10-08] MEDS ORDERED: DEXTROSE 50% 25 GM/50 ML VIAL IV PRN (14:33)
[2020-10-08] MEDS ORDERED: ALUMINUM/MAGNES/SIMETH MAX STR 30 ML UDCUP PO PRN (14:33)
[2020-10-08] MEDS ORDERED: GLUCAGON 1 MG VIAL IM PRN (14:33)
[2020-10-08] MEDS ORDERED: oxyCODONE/ACETAMINOPHEN 5-325 MG TABLET PO PRN (14:39)
[2020-10-08] MEDS ORDERED: NALOXONE 0.4 MG/ML VIAL IV PRN (14:42)
[2020-10-08 15:26] LABS: Basophils % 0.1 % (0.0-0.8); Hematocrit 40.9 VOL% (35.7-47.0); Hemoglobin 12.8 GM/DL (12.0-16.0); Immature Granulocytes % 0.7 %; Immature Granulocytes Absolute 0.08 #; Lymphocytes # 0.3 10*3/uL (1.4-4.0); Lymphocytes % 2.7 % (21.3-54.2); Mean Corpuscular HGB Conc 31.3 GM/DL (32-36); Mean Corpuscular Volume 92.5 FL (87-102); Mean Platelet Volume 12.8 FL (9.6-12.0); Monocytes % 7.6 % (1.7-12.7); Neutrophils % 88.9 % (38.7-73.9); Platelet Count 183 T/CUMM (130-400); Red Blood Count 4.42 MC/CUMM (3.8-5.5); Red Cell Distribution Width 13.2 % (9.3-17.3); White Blood Count 10.9 T/CUMM (4-12)
[2020-10-08] MEDS: LACTATED RINGERS 1,000 ML IV SCH (15:26)
[2020-10-08] MEDS: PIPERACILLIN/TAZOBACTAM 3,375 MG in SODIUM CHLORIDE 0.9% 100 ML IV SCH ×2 (15:30→22:08)
[2020-10-08] MEDS ORDERED: NITROGLYCERIN SL 0.4 MG TABLET SL PRN (15:37)
[2020-10-08 15:49] LABS: Albumin 2.6 G/DL (3.4-5.0); Bilirubin,Total 3.2 MG/DL (0.20-1.00); Calcium 9.1 MG/DL (8.5-10.1); Osmolality,Calculated 275.8 MOS/KG (273-304); Potassium 3.6 MMOL/L (3.5-5.1); Total Protein 7.6 G/DL (6.4-8.2)
[2020-10-08 16:11] LABS: Lymphocytes 4 % (20-55); Segmented Neutrophils 88 % (50-85); Total Cells Counted 100
[2020-10-08 16:12] LABS: Hypochromasia 1+; Microcytosis Slight
[2020-10-08] MEDS ORDERED: ATORVASTATIN 40 MG TABLET PO SCH (21:00)
[2020-10-08] MEDS: GABAPENTIN 300 MG CAPSULE PO SCH (22:07)
[2020-10-08] MEDS: carvediloL 3.125 MG TABLET PO SCH (22:08)
[2020-10-09 06:11] LABS: Basophils % 0.3 % (0.0-0.8); Eosinophils % 0.6 % (0.00-10.9); Hematocrit 38.4 VOL% (35.7-47.0); Hemoglobin 12.1 GM/DL (12.0-16.0); Immature Granulocytes % 0.5 %; Immature Granulocytes Absolute 0.03 #; Lymphocytes # 0.8 10*3/uL (1.4-4.0); Lymphocytes % 11.6 % (21.3-54.2); Mean Corpuscular HGB Conc 31.5 GM/DL (32-36); Mean Corpuscular Volume 93.9 FL (87-102); Mean Platelet Volume 13.4 FL (9.6-12.0); Monocytes % 11.6 % (1.7-12.7); Neutrophils % 75.4 % (38.7-73.9); Platelet Count 153 T/CUMM (130-400); Red Blood Count 4.09 MC/CUMM (3.8-5.5); Red Cell Distribution Width 13.3 % (9.3-17.3); White Blood Count 6.6 T/CUMM (4-12)
[2020-10-09 06:30] LABS: Albumin 2.5 G/DL (3.4-5.0); Bilirubin,Total 2.8 MG/DL (0.20-1.00); Calcium 9.1 MG/DL (8.5-10.1); Osmolality,Calculated 274.8 MOS/KG (273-304); Potassium 3.3 MMOL/L (3.5-5.1); Total Protein 7.2 G/DL (6.4-8.2)
[2020-10-09 06:38] LABS: Hypochromasia Slight; Microcytosis Slight; Platelet Estimate Adequate
[2020-10-09 06:45] LABS: Risk Ratio 2.12; Thyroid Stimulating Hormone 2.12 uIU/ml (0.358-3.74); VLDL Cholesterol 11.4 MG/DL
[2020-10-09] MEDS ORDERED: SUCCINYLCHOLINE 200 MG/10 ML VIAL ONE (06:54)
[2020-10-09] MEDS ORDERED: propofoL 200 MG/20 ML VIAL IV ONE (06:54)
[2020-10-09] MEDS ORDERED: DEXAMETHASONE 4 MG/1 ML VIAL ONE (06:54)
[2020-10-09] MEDS ORDERED: ONDANSETRON 4 MG/2 ML VIAL ONE (06:54)
[2020-10-09] MEDS ORDERED: LIDOCAINE 2% 5 ML VIAL ONE (06:54)
[2020-10-09] MEDS ORDERED: ROCURONIUM 50 MG/5 ML VIAL IV ONE (06:54)
[2020-10-09 07:05] LABS: Bilirubin,Urine Negative (Negative); Blood, Urine Small mg/dL (Negative); Glucose,Urine (UA) Negative (Negative); Ketones,Urine Negative (Negative); Nitrite,Urine Negative (Negative); Protein,Urine 100 MG/DL; RBC,Urine <1 /HPF (0-4); Squamous Epithelial Cell,Urine Occasional /HPF (0-10); Urine Appearance CLEAR (Clear); Urine Color Amber (Yellow); Urine Specific Gravity 1.021 (1.001-1.035)
[2020-10-09] MEDS ORDERED: INDOMETHACIN SUPP 50 MG SUPP RECTAL ONE ×2 (07:11→07:15)
[2020-10-09] MEDS ORDERED: NEOSTIGMINE 10 MG/10 ML VIAL ONE (08:20)
[2020-10-09] MEDS ORDERED: SEVOFLURANE 1 UNIT/15 MINUTE INH ONE (08:36)
[2020-10-09] MEDS ORDERED: METOPROLOL TARTRATE 5 MG/5 ML VIAL IV ONE (08:42)
[2020-10-09] MEDS ORDERED: POTASSIUM CHLORIDE 20 MEQ TABLET PO ONE (09:00)
[2020-10-09] MEDS: hydrALAZINE 20 MG/1 ML VIAL IV PRN (10:32)
[2020-10-09] MEDS: PIPERACILLIN/TAZOBACTAM 3,375 MG in SODIUM CHLORIDE 0.9% 100 ML IV SCH ×2 (10:38→16:42)
[2020-10-09] MEDS: PANTOPRAZOLE 40 MG VIAL IV SCH (11:57)
[2020-10-09] MEDS: carvediloL 3.125 MG TABLET PO SCH ×2 (12:00→20:52)
[2020-10-09] MEDS: EZETIMIBE 10 MG TABLET PO SCH (12:01)
[2020-10-09] MEDS: ISOSORBIDE MONONITRATE 30 MG TABLET PO SCH (12:01)
[2020-10-09] MEDS: GABAPENTIN 300 MG CAPSULE PO SCH ×3 (12:01→20:51)
[2020-10-09] MEDS: amLODIPine 10 MG TABLET PO SCH (12:01)
[2020-10-09] MEDS: LACTATED RINGERS 1,000 ML IV SCH (15:31)
[2020-10-09] MEDS: POTASSIUM CHLORIDE RIDER 10 MEQ/100 ML PREMIX IV PRN ×2 (17:13→18:11)
[2020-10-10] MEDS: PIPERACILLIN/TAZOBACTAM 3,375 MG in SODIUM CHLORIDE 0.9% 100 ML IV SCH ×4 (01:12→23:04)
[2020-10-10] MEDS: LACTATED RINGERS 1,000 ML IV SCH ×3 (02:14→19:05)
[2020-10-10] MEDS: LEVOTHYROXINE 88 MCG TABLET PO SCH ×2 (02:14→07:01)
[2020-10-10 06:05] LABS: Basophils % 0.2 % (0.0-0.8); Eosinophils % 0.5 % (0.00-10.9); Hematocrit 37.5 VOL% (35.7-47.0); Hemoglobin 11.5 GM/DL (12.0-16.0); Immature Granulocytes % 0.5 %; Immature Granulocytes Absolute 0.03 #; Lymphocytes # 0.5 10*3/uL (1.4-4.0); Lymphocytes % 8.5 % (21.3-54.2); Mean Corpuscular HGB Conc 30.7 GM/DL (32-36); Mean Corpuscular Volume 94.5 FL (87-102); Mean Platelet Volume 12.6 FL (9.6-12.0); Monocytes % 11.8 % (1.7-12.7); Neutrophils % 78.5 % (38.7-73.9); Platelet Count 165 T/CUMM (130-400); Red Blood Count 3.97 MC/CUMM (3.8-5.5); Red Cell Distribution Width 13.5 % (9.3-17.3); White Blood Count 6.1 T/CUMM (4-12)
[2020-10-10 06:39] LABS: Albumin 2.4 G/DL (3.4-5.0); Bilirubin,Total 1.6 MG/DL (0.20-1.00); Calcium 9.2 MG/DL (8.5-10.1); Osmolality,Calculated 275.7 MOS/KG (273-304); Potassium 3.9 MMOL/L (3.5-5.1); Total Protein 6.7 G/DL (6.4-8.2)
[2020-10-10] MEDS ORDERED: SUCCINYLCHOLINE 200 MG/10 ML VIAL ONE (08:43)
[2020-10-10] MEDS ORDERED: propofoL 200 MG/20 ML VIAL IV ONE (08:43)
[2020-10-10] MEDS ORDERED: fentaNYL 100 MCG/2 ML VIAL ONE ×2 (08:44→09:58)
[2020-10-10] MEDS ORDERED: ROCURONIUM 50 MG/5 ML VIAL IV ONE (08:45)
[2020-10-10] MEDS ORDERED: LACTATED RINGERS 1,000 ML IV SCH (09:00)
[2020-10-10] MEDS ORDERED: TISSUE ADHESIVE 1 EACH APPLICATOR TOP ONE (09:10)
[2020-10-10] MEDS ORDERED: LIDOCAINE 2% 5 ML VIAL ONE (09:58)
[2020-10-10] MEDS ORDERED: GLYCOPYRROLATE 0.4 MG/2 ML VIAL ONE (10:16)
[2020-10-10] MEDS ORDERED: DEXAMETHASONE 4 MG/1 ML VIAL ONE (10:16)
[2020-10-10] MEDS ORDERED: ONDANSETRON 4 MG/2 ML VIAL ONE (10:16)
[2020-10-10] MEDS ORDERED: SEVOFLURANE 1 UNIT/15 MINUTE INH ONE (10:20)
[2020-10-10] MEDS: GABAPENTIN 300 MG CAPSULE PO SCH ×3 (12:17→21:01)
[2020-10-10] MEDS: EZETIMIBE 10 MG TABLET PO SCH (12:38)
[2020-10-10] MEDS: carvediloL 3.125 MG TABLET PO SCH ×2 (12:38→21:01)
[2020-10-10] MEDS: amLODIPine 10 MG TABLET PO SCH (12:38)
[2020-10-10] MEDS: PANTOPRAZOLE 40 MG VIAL IV SCH (12:38)
[2020-10-10] MEDS: ISOSORBIDE MONONITRATE 30 MG TABLET PO SCH (13:02)
[2020-10-11] MEDS: hydrALAZINE 20 MG/1 ML VIAL IV PRN (05:15)
[2020-10-11 05:58] LABS: Basophils % 0.3 % (0.0-0.8); Eosinophils % 0.2 % (0.00-10.9); Hematocrit 39.5 VOL% (35.7-47.0); Hemoglobin 12.2 GM/DL (12.0-16.0); Immature Granulocytes % 0.5 %; Immature Granulocytes Absolute 0.03 #; Lymphocytes # 0.9 10*3/uL (1.4-4.0); Lymphocytes % 13.7 % (21.3-54.2); Mean Corpuscular HGB Conc 30.9 GM/DL (32-36); Mean Corpuscular Volume 93.4 FL (87-102); Mean Platelet Volume 12.4 FL (9.6-12.0); Monocytes % 12.9 % (1.7-12.7); Neutrophils % 72.4 % (38.7-73.9); Platelet Count 171 T/CUMM (130-400); Red Blood Count 4.23 MC/CUMM (3.8-5.5); Red Cell Distribution Width 13.4 % (9.3-17.3); White Blood Count 6.3 T/CUMM (4-12)
[2020-10-11] MEDS: LEVOTHYROXINE 88 MCG TABLET PO SCH (06:02)
[2020-10-11] MEDS: PIPERACILLIN/TAZOBACTAM 3,375 MG in SODIUM CHLORIDE 0.9% 100 ML IV SCH (06:03)
[2020-10-11] MEDS: LACTATED RINGERS 1,000 ML IV SCH (06:04)
[2020-10-11 06:27] LABS: Albumin 2.3 G/DL (3.4-5.0); Calcium 8.8 MG/DL (8.5-10.1); Osmolality,Calculated 277.4 MOS/KG (273-304); Potassium 3.6 MMOL/L (3.5-5.1); Total Protein 6.6 G/DL (6.4-8.2)
[2020-10-11 07:53] VITALS: BP 152/48
[2020-10-11] MEDS: EZETIMIBE 10 MG TABLET PO SCH (09:23)
[2020-10-11] MEDS: amLODIPine 10 MG TABLET PO SCH (09:23)
[2020-10-11] MEDS: carvediloL 3.125 MG TABLET PO SCH (09:23)
[2020-10-11] MEDS: ISOSORBIDE MONONITRATE 30 MG TABLET PO SCH (09:23)
[2020-10-11] MEDS: PANTOPRAZOLE 40 MG VIAL IV SCH (09:23)
[2020-10-11] MEDS: GABAPENTIN 300 MG CAPSULE PO SCH (09:24)
[2020-10-11 09:29] LABS: Hypochromasia Slight; Platelet Estimate Normal
== END 2020-10-11 11:20 | disposition home or self-care (01) ==
LOC: SUATTDRO 12:51 → N.3E 12:51 → INTOOBSV 12:51
PROVIDERS: ADMIT Internal Medicine; ATTEND Internal Medicine
PROC: ERCPWSP (ICD-10-PCS; 2020-10-09 07:35)
PROC: LAPCHOL (2020-10-10 09:16)

== ENCOUNTER 2021-07-09 20:26 | Observation (INO) ==
[2021-07-09 21:35] LABS: Eosinophils # 0.2 10*3/uL (0.0-0.87); Eosinophils % 3.7 % (0.00-10.9); Hematocrit 43.4 VOL% (35.7-47.0); Hemoglobin 13.7 GM/DL (12.0-16.0); Immature Granulocytes % 0.2 %; Immature Granulocytes Absolute 0.01 #; Lymphocytes # 1.4 10*3/uL (1.4-4.0); Lymphocytes % 34.2 % (21.3-54.2); Mean Corpuscular HGB Conc 31.6 GM/DL (32-36); Mean Platelet Volume 12.3 FL (9.6-12.0); Monocytes # 0.6 10*3/uL (0.11-0.8); Monocytes % 15.8 % (1.7-12.7); Neutrophils % 45.1 % (38.7-73.9); Platelet Count 189 T/CUMM (130-400); Red Blood Count 4.57 MC/CUMM (3.8-5.5); Red Cell Distribution Width 12.8 % (9.3-17.3); White Blood Count 4.1 T/CUMM (4-12)
[2021-07-09 21:42] LABS: PT Patient Result 10.6 SECS (10.5-12.0)
[2021-07-09 22:09] LABS: Alanine Aminotransferase 18 U/L (13-56); Albumin 3.3 G/DL (3.4-5.0); Alkaline Phosphatase 104 U/L (45-117); Aspartate Amino Transferase 18 U/L (0-37); Bilirubin,Total < 0.39 MG/DL (0.20-1.00); Blood Urea Nitrogen 13 MG/DL (7-18); Calcium 8.4 MG/DL (8.5-10.1); Carbon Dioxide 32 MMOL/L (21-32); Chloride 105 MMOL/L (98-107); Glucose 91 MG/DL (74-106); Osmolality,Calculated 280.3 MOS/KG (273-304); Potassium 3.6 MMOL/L (3.5-5.1); Sodium 141 MMOL/L (136-145); Total Protein 7.4 G/DL (6.4-8.2)
[2021-07-09 22:22] LABS: Eosinophils 4 % (0-10); Lymphocytes 28 % (20-55); Total Cells Counted 100
[2021-07-09 22:23] LABS: Platelet Estimate Adequate
[2021-07-10] MEDS ORDERED: hydrALAZINE 20 MG/1 ML VIAL IV STA (00:08)
[2021-07-10 00:55] LABS: Bilirubin,Urine Negative (Negative); Blood, Urine Negative (Negative); Glucose,Urine (UA) Negative (Negative); Ketones,Urine Negative (Negative); Nitrite,Urine Negative (Negative); Protein,Urine Negative (Negative); Urine Appearance Clear (Clear); Urine Color Yellow (Yellow); Urine pH 6.5 (4.5-8.0)
[2021-07-10 00:58] LABS: Bacteria,Urine Occasional /HPF (Few); Mucus,Urine Occasional /LPF (Occasional); RBC,Urine 4 /HPF (0-4); Squamous Epithelial Cell,Urine Occasional /HPF (0-10)
[2021-07-10] MEDS ORDERED: ONDANSETRON 4 MG/2 ML VIAL IV PRN (01:37)
[2021-07-10] MEDS ORDERED: hydrALAZINE 20 MG/1 ML VIAL IV PRN (01:37)
[2021-07-10] MEDS ORDERED: DEXTROSE 10% 250 ML BAG IV PRN (01:37)
[2021-07-10] MEDS ORDERED: GLUCAGON 1 MG VIAL IM PRN (01:37)
[2021-07-10] MEDS ORDERED: ACETAMINOPHEN 325 MG TABLET PO PRN (01:37)
[2021-07-10] MEDS ORDERED: MORPHINE 2 MG/1 ML SYRINGE IV PRN (01:37)
[2021-07-10] MEDS ORDERED: DEXTROSE 50% 25 GM/50 ML VIAL IV PRN (01:56)
[2021-07-10] MEDS ORDERED: NITROGLYCERIN SL 0.4 MG TABLET SL PRN (07:42)
[2021-07-10] MEDS: INSULIN LISPRO 100 UNIT/ML SUBCUT SCH ×4 (08:09→23:26)
[2021-07-10] MEDS: ATORVASTATIN 40 MG TABLET PO SCH (08:30)
[2021-07-10] MEDS: ISOSORBIDE MONONITRATE 30 MG TABLET PO SCH (08:30)
[2021-07-10] MEDS: amLODIPine 10 MG TABLET PO SCH (08:30)
[2021-07-10] MEDS: PANTOPRAZOLE 40 MG TABLET PO SCH (08:30)
[2021-07-10] MEDS ORDERED: LEVOTHYROXINE 88 MCG TABLET PO SCH (09:00)
[2021-07-10] MEDS: VALSARTAN 80 MG TABLET PO SCH ×2 (15:04→21:22)
[2021-07-11] MEDS ORDERED: LEVOTHYROXINE 100 MCG TABLET PO SCH (06:30)
[2021-07-11] MEDS: INSULIN LISPRO 100 UNIT/ML SUBCUT SCH ×2 (08:15→13:11)
[2021-07-11 08:26] VITALS: BP 123/76
[2021-07-11] MEDS: VALSARTAN 80 MG TABLET PO SCH (09:04)
[2021-07-11] MEDS: ATORVASTATIN 40 MG TABLET PO SCH (09:05)
[2021-07-11] MEDS: PANTOPRAZOLE 40 MG TABLET PO SCH (09:05)
[2021-07-11] MEDS: ISOSORBIDE MONONITRATE 30 MG TABLET PO SCH (09:05)
[2021-07-11] MEDS: amLODIPine 10 MG TABLET PO SCH (09:05)
[2021-07-11 09:40] LABS: Bilirubin,Total 0.4 MG/DL (0.20-1.00); Calcium 9.1 MG/DL (8.5-10.1); Osmolality,Calculated 280.3 MOS/KG (273-304); Potassium 3.4 MMOL/L (3.5-5.1); Total Protein 7.3 G/DL (6.4-8.2)
[2021-07-11] MEDS ORDERED: POTASSIUM CHLORIDE 20 MEQ TABLET PO ONE (10:30)
== END 2021-07-11 11:51 | disposition home or self-care (01) ==
LOC: EDBD → EDUNIT# → N.ED 20:26 → N.EDINP 20:26 → N.TELEN 07-10 10:02
PROVIDERS: ADMIT Family Medicine; ATTEND Family Medicine